=== PATIENT | female | born 1940 | race Caucasian/White ===

== ENCOUNTER 2017-05-05 13:24 | Emergency (ER) | payer OTHER, MEDICARE ==
[~2017-05-05] VITALS: Ht 160 cm; Wt 90.7 kg
[2017-05-05] MEDS: LACTATED RINGERS 1,000 ML IV ONE (13:40)
[2017-05-05] MEDS: fentaNYL INJECTION 100 MCG/2 ML AMP ONE (13:55)
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
[2017-05-05 14:04] LABS: MEAN PLATELET VOLUME 10.9 FL (7.4-10.4); RED BLOOD COUNT 3.61 10^6/uL (4.35-5.85); RED CELL DISTRIBUTION WIDTH 13.1 % (10.0-14.5); WHITE BLOOD COUNT 12.9 10^3/uL (4.3-11.0)
[2017-05-05 14:32] LABS: ALANINE AMINOTRANSFERASE 63 U/L (0-55); ALBUMIN 3.5 GM/DL (3.2-4.5); ALCOHOL 12 MG/DL (<10); ANION GAP 11 MMOL/L (5-14); ASPARTATE AMINO TRANSFERASE 93 U/L (5-34); BILIRUBIN,DIRECT 0.2 MG/DL (0.0-0.3); BILIRUBIN,INDIRECT 0.3 MG/DL; BILIRUBIN,TOTAL 0.5 MG/DL (0.1-1.0); BLOOD UREA NITROGEN 26 MG/DL (7-18); BUN/CREATININE RATIO 35; CARBON DIOXIDE 19 MMOL/L (21-32); CHLORIDE 111 MMOL/L (98-107); CREATINE KINASE 868 U/L (29-168); CREATININE SERUM 0.75 MG/DL (0.60-1.30); GFR ESTIMATED > 60; GLUCOSE 136 MG/DL (70-105); MAGNESIUM 1.9 MG/DL (1.8-2.4); PHOSPHORUS 3.9 MG/DL (2.3-4.7); POTASSIUM 3.5 MMOL/L (3.6-5.0); SODIUM 141 MMOL/L (135-145); TOTAL PROTEIN 5.7 GM/DL (6.4-8.2)
[2017-05-05] MEDS: NS 100 ML (IVPB) BAG IV ONE ×2 (14:34→14:36)
[2017-05-05] MEDS: IOHEXOL 350 MG/ML 100 ML (OMNIPAQUE 350) VIAL IV ONE ×2 (14:34→14:36)
[2017-05-05] MEDS: CATHETER FLUSH 10 ML SYR IV PRN (14:35)
[2017-05-05 14:43] LABS: INR 1.1 (0.8-1.4); PARTIAL THROMBOPLASTIN TIME 28 SEC (24-35); PROTHROMBIN TIME PATIENT 14.5 SEC (12.2-14.7)
[2017-05-05 14:56] LABS: FIBRINOGEN 280 MG/DL (221-496)
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
[2017-05-05 15:10] LABS: BILIRUBIN,URINE NEGATIVE (NEGATIVE); KETONES,URINE 1+ (NEGATIVE); LEUKOCYTE ESTERASE ,URINE NEGATIVE (NEGATIVE); NITRITE,URINE NEGATIVE (NEGATIVE); PH,URINE 5 (5-9); PROTEIN,URINE 1+ (NEGATIVE); UROBILINOGEN,URINE NORMAL (NORMAL)
[2017-05-05] MEDS: TETANUS,DIPTH,PERTUSS P/F (BOOSTRIX) 0.5 ML VIAL IM ONE (15:10)
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
[2017-05-05] MEDS: TETANUS & DIPHTHERIA TOX,ADULT 0.5 ML (TENIVAC) IM ONE (15:21)
[2017-05-05 15:45] VITALS: BP 107/70
[2017-05-06] MEDS: LACTATED RINGERS 1,000 ML IV SCH (08:58)
== END 2017-05-05 15:45 | disposition short-term general hospital (02) ==
LOC: EDUNIT# 13:24 → ER 13:25
DX: S12.031A Nondisplaced posterior arch fracture of first cervical vertebra, initial encounter for closed fracture (principal); S12.401A Unspecified nondisplaced fracture of fifth cervical vertebra, initial encounter for closed fracture; S12.501A Unspecified nondisplaced fracture of sixth cervical vertebra, initial encounter for closed fracture; S12.601A Unspecified nondisplaced fracture of seventh cervical vertebra, initial encounter for closed fracture; S22.42XA Multiple fractures of ribs, left side, initial encounter for closed fracture; S32.82XA Multiple fractures of pelvis without disruption of pelvic ring, initial encounter for closed fracture; S02.2XXA Fracture of nasal bones, initial encounter for closed fracture; S22.20XA Unspecified fracture of sternum, initial encounter for closed fracture; S27.0XXA Traumatic pneumothorax, initial encounter; S05.11XA Contusion of eyeball and orbital tissues, right eye, initial encounter; I10 Essential (primary) hypertension; E03.9 Hypothyroidism, unspecified; Z86.010 Personal history of colon polyps; Z90.49 Acquired absence of other specified parts of digestive tract; Z90.89 Acquired absence of other organs; Z98.1 Arthrodesis status; V48.5XXA Car driver injured in noncollision transport accident in traffic accident, initial encounter
CPT/HCPCS: 36415; 70450; 70486; 70498; 71010; 71260; 72125; 72128; 72131; 74177; 80048; 80076; 80306; 80320; 81000; 82550; 83605; 83735; 84100; 84484; 84703; 85027; 85379; 85384; 85610; 85730; 86850; 86900; 86901; 86920; 93005; 93041; 99291; 99292

== ENCOUNTER 2017-05-18 11:01 | Inpatient (IN) | payer OTHER, MEDICARE ==
[~2017-05-18] VITALS: Ht 162.6 cm; Wt 80.3 kg
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
[2017-05-18 16:15] VITALS: BP 138/82
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
[2017-05-18] MEDS ORDERED: INFLUENZA TRIvalent 2017-2018 0.5 ML/45 MCG SYR IM ONE (20:00)
[2017-05-18] MEDS ORDERED: PNEUMOCOCCAL VACCINE 25 MCG/0.5 ML VIAL IM ONE (20:00)
[2017-05-18 20:14] VITALS: BP 107/69
[2017-05-18] MEDS: POLYETHYLENE GLYCOL 17 GM (MIRALAX) PACK PO SCH (20:14)
[2017-05-18] MEDS: SENNA W/DOCUSATE (SENOKOT S) TABLET PO SCH (20:15)
[2017-05-18] MEDS: TRIM/SULFAMETH 160/800 (SEPTRA DS) TAB PO SCH (20:28)
[2017-05-18] MEDS: ENOXAPARIN 40 MG/0.4 ML (LOVENOX) SYR SC SCH (20:28)
[2017-05-18] MEDS: MELATONIN 3 MG TABLET PO SCH (20:28)
[2017-05-18] MEDS: LIDOCAINE PATCH REMOVAL TP SCH (20:28)
[2017-05-19] MEDS: oxyCODONE/APAP 5/325MG (PERCOCET 5) TABLET PO PRN ×3 (01:39→15:35)
[2017-05-19] MEDS: MULTIVIT W/MINERALS TAB (THERAGRAN M) PO SCH (06:09)
[2017-05-19] MEDS: ASCORBIC ACID (VIT C) 500 MG TABLET PO SCH (06:09)
[2017-05-19] MEDS: TRIM/SULFAMETH 160/800 (SEPTRA DS) TAB PO SCH ×2 (06:09→17:24)
[2017-05-19 06:21] VITALS: BP 112/71
[2017-05-19] MEDS ORDERED: LEVOTHYROXINE 112 MCG (LEVOTHROID) TAB PO NR (06:30)
[2017-05-19] MEDS: LORATADINE (CLARITIN) 10 MG TAB PO SCH (08:26)
[2017-05-19] MEDS: SENNA W/DOCUSATE (SENOKOT S) TABLET PO SCH ×2 (08:33→21:20)
[2017-05-19] MEDS: POLYETHYLENE GLYCOL 17 GM (MIRALAX) PACK PO SCH ×2 (08:33→21:20)
[2017-05-19] MEDS: LIDOCAINE (LIDODERM) 5% PATCH TOP SCH (09:00)
[2017-05-19] MEDS ORDERED: VITA1TAB17 PO (10:11)
[2017-05-19] MEDS ORDERED: ASCO10006 PO (10:11)
[2017-05-19] MEDS ORDERED: CETI10TA20 PO (10:11)
[2017-05-19] MEDS ORDERED: IBUP-30 PO (10:11)
[2017-05-19] MEDS ORDERED: LEVO112T55 PO (10:11)
[2017-05-19] MEDS ORDERED: MULT-351 PO (10:11)
[2017-05-19] MEDS ORDERED: MELA3TAB PO (10:11)
--- NOTE | 2017-05-19 10:51 | Physical Therapy Daily Note ---
PT Daily Note-Current Subjective Agreeable to PT. Wants to get on the commode. After treatment, pt said that it felt really good to get up and do something. Pain Numeric Pain Scale: 4 Location: Anterior (sternun) Pain Description: Pressure Mental Status Patient Orientation: Person, Place, Time, Situation Attachments: Oxygen (insitu during and post treatment) Transfers Functional Lane Measure 0=Not Assessed/NA 4=Minimal Assistance 1=Total Assistance 5=Supervision or Setup 2=Maximal Assistance 6=Modified Lane 3=Moderate Assistance 7=Complete IndependenceIRFPAI Quality Coding Scale 6 Independent with activity with or without an assistive device 5 Patient requires set up or clean up by helper. Patient completes activity by themselves 4 Supervision or touching assist (CGA). [place] provide cues , steadying assist 3 The helper provides less than half the effort to complete the activity 2 The helper provides more than half the effort to complete the activity 1 Dependent. The helper does all the effort to complete an activity 7 Patient refused to complete or attempt activity 9 The patient did not perform the activity before the current illness or injury 88 Not attempted due to Medical conditions or safety concerns Transfers (B, C, W/C) (FIM): 2 Supine to/from Sit: 4 Sit to Lying (QC): 3 Chair/Qqs-sk-Jghhc Xfer(QC): 2 (slide board transfer) Car Transfer (QC): 88 Pt does well with the slide board; requires max assist to place the board, requires mod assist to slide across and max assist to remove the board; skilled cues provided for hand placement and sequencing to use the board. Slide board to the right x 2 and to the left x 1. Weight Bearing Right Lower Extremity: Right Non Weight Bearing Left Lower Extremity: Left Non Weight Bearing Wheelchair Training Does the Pt Use a Wheelchair?: Yes Wheelchair (FIM): 2 Wheelchair Distance: 7=861-15 ft Distance: 125 ft Wheelchair Level of Assist: 4 Wheel 50 ft with 2 turns (QC): 4 Wheel 150 ft (QC): 88 Type of Wheelchair: Manual wheelchair propulsion 125 ft x 2 with min to CGA. Needs rest breaks. Uses B UE's to propel; left UE weaker than the right during propulsion. Assessment Current Status: Good Progress Pt uses UE very well and very helpful with transfers. PT Short Term Goals Short Term Goals Time Frame: Jun 01, 2017 Transfers (B,C,W/C) (FIM): 4 Wheelchair (FIM): 5 Wheelchair distance (FIM): 3=150 ft PT Fpc Goals Fpc Goals PT Packaging Assembler Goals Time Frame: Jun 15, 2017 Transfers (B,C,W/C) (FIM): 6 Sit to Lying (QC): 6 Lying-Sitting on Side/Bed(QC): 6 Sit to Stand (QC): 88 Rollin Roll Left to Right (QC): 6 Chair/Yyt-wc-Dqycv Xfer(QC): 6 (slide board tfr) Car Transfer (QC): 4 Does the Patient Walk: No and Walking Goal NOT indicated Wheelchair (FIM): 6 Wheelchair distance (FIM): 3=150 ft Wheelchair Level of Assist: 6 Wheel 50 feet with 2 turns (QC: 6 Stairs (FIM): 1 1 Step (curb) (QC): 88 4 Steps (QC): 88 12 Steps (QC): 88 Picking up an Object (QC): 88 PT Plan Problem List Problem List: Activity Tolerance, Functional Strength, Safety, Balance, Transfer, Bed Mobility Treatment/Plan Treatment Plan: Continue Plan of Care Treatment Plan: Bed Mobility, Education, Functional Activity Buster, Functional Strength, Safety, Therapeutic Exercise, Transfers, Other (wc mob) Treatment Duration: Jun 15, 2017 Frequency: At least 5 of 7 days/Wk (IRF) Estimated Hrs Per Day: 1.5 hours per day Patient and/or Family Agrees t: Yes Safety Risks/Education Patient Education: Transfer Techniques Teaching Recipient: Patient Teaching Methods: Demonstration, Discussion Response to Teaching: Return Demonstration, Reinforcement Needed Time/GCodes Time In: 824 Time Out: 936 Total Billed Treatment Time: 68 Total Billed Treatment visit FA 45 WC 23 FANNY CALHOUN PT May 19, 2017 10:51
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
--- NOTE | 2017-05-19 15:18 | Occupational Ther Daily Note ---
OT Current Status-Daily Note Subjective Pt seen in room, up in bed, asleep but easily awakened. Said she had slept well. Pain not mentioned Mental Status/Objective Functional [place] Measure 0=Not Assessed/NA 4=Minimal Assistance 1=Total Assistance 5=Supervision or Setup 2=Maximal Assistance 6=Modified [place] 3=Moderate Assistance 7=Complete [place] ADL-Treatment PT reported toilet transfer sliding board to [facility] with drop arm, max assist. Pt was able to manage hygiene with just a little help. Did not have clothing on but process discussed with pt. Functional [place] Measure 0=Not Assessed/NA 4=Minimal Assistance 1=Total Assistance 5=Supervision or Setup 2=Maximal Assistance 6=Modified [place] 3=Moderate Assistance 7=Complete IndependenceIRFPAI Quality Coding Scale 6 Independent with activity with or without an assistive device 5 Patient requires set up or clean up by helper. Patient completes activity by themselves 4 Supervision or touching assist (CGA). [place] provide cues , steadying assist 3 The helper provides less than half the effort to complete the activity 2 The helper provides more than half the effort to complete the activity 1 Dependent. The helper does all the effort to complete an activity 7 Patient refused to complete or attempt activity 9 The patient did not perform the activity before the current illness or injury 88 Not attempted due to Medical conditions or safety concerns Eating (FIM): 5 (Pt was unable to get a drink using a sippy cup but was successful with foam cup with straw. pt provided with Andres cup which is lightweight, has a handle and lid and uses a straw. pt reported that worked well for her, with return demo) Eating (QC): 5 Bathing (FIM): 4 (Sponge bath, with patient either supine in bed or sitting EOB. She needed help washing her back and rolled side to side with min assist to wash and dry bottom. She sat EOB to wash lower legs and feet. pt educ modified technique to be able to reach feet) Bathing Location: L Arm, R Arm, L Upper Leg, R Upper Leg, L Lower Leg ( including foot), R Lower Leg (including foot), Chest, Abdomen, Perineal Area Shower/Bathe Self (QC): 3 Upper Body (FIM): 4 (Donned shirt with sitting up long sitting in bed. A little help needed to get into position) Upper Body Dressing (QC): 3 Lower Body Dressing (FIM): 1 (pt was able to get socks off with difficulty but not put them back on. Able to get feet into pants legs and pull pants up to thighs, sitting EOB. Mod assist to get feet back into bed. Two person assist to roll her and pull pants up and to position her in bed) Lower Body Dressing (QC): 1 On/Off Footwear (QC): 3 Toileting (FIM): 4 Toileting Hygiene (QC): 4 Transfers (B, C, W/C) (FIM): 3 Toilet/Commode Transfer (FIM): 2 Toilet Transfer (QC): 2 Shower Transfer(FIM): 0 Pt originally requested a shower but we did sponge bath. She was very fatigued after bathing and dressing and needed two person assist to pull up in bed, even with her helping. Pt left up in bed, all needs met. Education OT Patient Education: Modified ADL techniques, Progress toward Goal/Update tx plan, Purpose of tx/functional activities, Use of adapted equipment Teaching Recipient: Patient Teaching Methods: Demonstration, Discussion Response to Teaching: Verbalize Understanding, Return Demonstration OT Short Term Goals Short Term Goals Transfers (B,C,W/C) (FIM): 4 1=Demonstrate adherence to instructed precautions during ADL tasks. 2=Patient will verbalize/demonstrate understanding of assistive devices/ modifications for ADL. 3=Patient will improve strength/tolerance for activity to enable patient to perform ADL's. OT Half-Way Goals Half-Way Goals 1=Demonstrate adherence to instructed precautions during ADL tasks. 2=Patient will verbalize/demonstrate understanding of assistive devices/ modifications for ADL. 3=Patient will improve strength/tolerance for activity to enable patient to perform ADL's. OT Education/Plan Discharge Recommendations Plan/Recommendations: Continue POC Treatment Plan/Plan of Care Patient would benefit from OT for education, treatment and training to promote independence in ADL's, mobility, safety and/or upper extremity function for ADL' s. Treatment Duration: Jun 15, 2017 Frequency: At least 5 of 7 days/Wk (IRF) Estimated Hrs Per Day: 1.5 hours per day Rehab Potential: Good Time/GCodes Start Time: 11:07 Stop Time: 12:12 Total Time Billed (hr/min): 65 Billed Treatment Time visit, ADL 65 minutes MICHELE ESPINOZA OT May 19, 2017 15:18
--- NOTE | 2017-05-19 15:18 | Physical Therapy Daily Note ---
PT Daily Note-Current Subjective Pt reports she is exhausted. Reports her morning therapy wore her out. Agrees to bed exercises. Transfers Functional [place] Measure 0=Not Assessed/NA 4=Minimal Assistance 1=Total Assistance 5=Supervision or Setup 2=Maximal Assistance 6=Modified [place] 3=Moderate Assistance 7=Complete IndependenceIRFPAI Quality Coding Scale 6 Independent with activity with or without an assistive device 5 Patient requires set up or clean up by helper. Patient completes activity by themselves 4 Supervision or touching assist (CGA). [place] provide cues , steadying assist 3 The helper provides less than half the effort to complete the activity 2 The helper provides more than half the effort to complete the activity 1 Dependent. The helper does all the effort to complete an activity 7 Patient refused to complete or attempt activity 9 The patient did not perform the activity before the current illness or injury 88 Not attempted due to Medical conditions or safety concerns Weight Bearing Right Lower Extremity: Right Non Weight Bearing Left Lower Extremity: Left Non Weight Bearing Exercises Supine Ex: Ankle pumps, Quad Set, Glut sets, Heel Slides, Short Arc Quads, Hip abd/add Supine Reps: 15 (LE ther ex performed to promote strength for functional mobility once she is allowed to weight bear. ) Assessment Pt fatigued this pm. Completed bed exercises; bed exercises important to promote LE strength while she is non weight bearing, ther ex is indicated to continue to use her legs and strengthen them in a NWB position. PT Short Term Goals Short Term Goals Time Frame: Jun 01, 2017 Transfers (B,C,W/C) (FIM): 4 Wheelchair (FIM): 5 Wheelchair distance (FIM): 3=150 ft Wheelchair Distance: 125 ft PT Shelter Goals Nursing Executive Goals PT Nursing Executive Goals Time Frame: Jun 15, 2017 Transfers (B,C,W/C) (FIM): 6 Sit to Lying (QC): 6 Lying-Sitting on Side/Bed(QC): 6 Sit to Stand (QC): 88 Rollin Roll Left to Right (QC): 6 Chair/Quv-yv-[place] Xfer(QC): 6 (slide board tfr) Car Transfer (QC): 4 Does the Patient Walk: No and Walking Goal NOT indicated Wheelchair (FIM): 6 Wheelchair distance (FIM): 3=150 ft Wheelchair Level of Assist: 6 Wheel 50 feet with 2 turns (QC: 6 Stairs (FIM): 1 1 Step (curb) (QC): 88 4 Steps (QC): 88 12 Steps (QC): 88 Picking up an Object (QC): 88 PT Plan Problem List Problem List: Activity Tolerance, Functional Strength, Safety, Balance, Transfer, Bed Mobility Treatment/Plan Treatment Plan: Continue Plan of Care Treatment Plan: Bed Mobility, Education, Functional Activity Buster, Functional Strength, Safety, Therapeutic Exercise, Transfers, Other (wc mob) Treatment Duration: Jun 15, 2017 Frequency: At least 5 of 7 days/Wk (IRF) Estimated Hrs Per Day: 1.5 hours per day Patient and/or Family Agrees t: Yes Time/GCodes Time In: 1305 Time Out: 1330 Total Billed Treatment Time: 25 Total Billed Treatment visit EX 25 FANNY CALHOUN PT May 19, 2017 15:18
--- NOTE | 2017-05-19 15:19 | Occupational Ther Daily Note ---
OT Current Status-Daily Note Subjective Pt seen in bed, very fatigued and sleepy but willing to try OT. Appearance Easily fell asleep during tx Mental Status/Objective Functional [place] Measure 0=Not Assessed/NA 4=Minimal Assistance 1=Total Assistance 5=Supervision or Setup 2=Maximal Assistance 6=Modified [place] 3=Moderate Assistance 7=Complete [place] ADL-Treatment Functional [place] Measure 0=Not Assessed/NA 4=Minimal Assistance 1=Total Assistance 5=Supervision or Setup 2=Maximal Assistance 6=Modified [place] 3=Moderate Assistance 7=Complete IndependenceIRFPAI Quality Coding Scale 6 Independent with activity with or without an assistive device 5 Patient requires set up or clean up by helper. Patient completes activity by themselves 4 Supervision or touching assist (CGA). [place] provide cues , steadying assist 3 The helper provides less than half the effort to complete the activity 2 The helper provides more than half the effort to complete the activity 1 Dependent. The helper does all the effort to complete an activity 7 Patient refused to complete or attempt activity 9 The patient did not perform the activity before the current illness or injury 88 Not attempted due to Medical conditions or safety concerns Grooming (FIM): 5 (Pt was able to brush her teeth with setup and used modified cup to rinse her mouth. She washed face and hands earlier during sponge bath, sestup) Oral Hygiene (QC): 5 Other Treatment Pt did 10 reps bilat UE AROM with no additional resistance. Required recovery breaks at times during the 10 reps and between reps. O2 in place throughout. Pt needed just a little help to come to long sitting to do scapular exercises. Pt turned on her R side with pillows at end of tx and left up in bed, all needs met. Education OT Patient Education: Exercise program Teaching Recipient: Patient Teaching Methods: Demonstration Response to Teaching: Return Demonstration OT Short Term Goals Short Term Goals Transfers (B,C,W/C) (FIM): 4 1=Demonstrate adherence to instructed precautions during ADL tasks. 2=Patient will verbalize/demonstrate understanding of assistive devices/ modifications for ADL. 3=Patient will improve strength/tolerance for activity to enable patient to perform ADL's. OT Jail Goals [employer]ist Internship Goals 1=Demonstrate adherence to instructed precautions during ADL tasks. 2=Patient will verbalize/demonstrate understanding of assistive devices/ modifications for ADL. 3=Patient will improve strength/tolerance for activity to enable patient to perform ADL's. OT Education/Plan Discharge Recommendations Plan/Recommendations: Continue POC Treatment Plan/Plan of Care Patient would benefit from OT for education, treatment and training to promote independence in ADL's, mobility, safety and/or upper extremity function for ADL' s. Treatment Duration: Jun 15, 2017 Frequency: At least 5 of 7 days/Wk (IRF) Estimated Hrs Per Day: 1.5 hours per day Rehab Potential: Good Time/GCodes Start Time: 14:35 Stop Time: 15:00 Total Time Billed (hr/min): 25 Billed Treatment Time visit, 25 minutes exercise MICHELE ESPINOZA OT May 19, 2017 15:19
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
[2017-05-19 19:16] VITALS: BP 101/64
[2017-05-19] MEDS: MELATONIN 3 MG TABLET PO SCH (21:18)
[2017-05-19] MEDS: LIDOCAINE PATCH REMOVAL TP SCH (21:20)
[2017-05-19] MEDS: ENOXAPARIN 40 MG/0.4 ML (LOVENOX) SYR SC SCH (21:20)
[2017-05-20 05:46] LABS: BASOPHILS # (AUTO) 0.1 10^3/uL (0.0-0.1); BASOPHILS % (AUTO) 1 % (0-10); EOSINOPHILS # (AUTO) 0.2 10^3/uL (0.0-0.3); EOSINOPHILS % (AUTO) 2 % (0-10); HEMATOCRIT 30 % (35-52); HEMOGLOBIN 9.7 G/DL (11.5-16.0); LYMPHOCYTES # (AUTO) 1.4 X 10^3 (1.0-4.0); LYMPHOCYTES % (AUTO) 16 % (12-44); MEAN CORPUSCULAR HEMOGLOBIN 32 PG (25-34); MEAN CORPUSCULAR HGB CONC 32 G/DL (32-36); MEAN CORPUSCULAR VOLUME 100 FL (80-99); MEAN PLATELET VOLUME 9.9 FL (7.4-10.4); MONOCYTES # (AUTO) 0.6 X 10^3 (0.0-1.0); MONOCYTES % (AUTO) 7 % (0-12); NEUTROPHILS # (AUTO) 6.7 X 10^3 (1.8-7.8); NEUTROPHILS % (AUTO) 75 % (42-75); PLATELET COUNT 484 10^3/uL (130-400); RED BLOOD COUNT 3.03 10^6/uL (4.35-5.85); RED CELL DISTRIBUTION WIDTH 16.3 % (10.0-14.5); WHITE BLOOD COUNT 8.9 10^3/uL (4.3-11.0)
[2017-05-20 06:05] LABS: ALANINE AMINOTRANSFERASE 67 U/L (0-55); ALBUMIN 3.2 GM/DL (3.2-4.5); ALKALINE PHOSPHATASE 314 U/L (40-136); BILIRUBIN,TOTAL 0.9 MG/DL (0.1-1.0); BUN/CREATININE RATIO 21; CALCIUM 8.3 MG/DL (8.5-10.1); CARBON DIOXIDE 24 MMOL/L (21-32); CHLORIDE 103 MMOL/L (98-107); CREATININE SERUM 0.68 MG/DL (0.60-1.30); GFR ESTIMATED > 60; GLUCOSE 114 MG/DL (70-105); POTASSIUM 4.3 MMOL/L (3.6-5.0); SODIUM 139 MMOL/L (135-145)
[2017-05-20] MEDS: MULTIVIT W/MINERALS TAB (THERAGRAN M) PO SCH (06:24)
[2017-05-20] MEDS: ASCORBIC ACID (VIT C) 500 MG TABLET PO SCH (06:24)
[2017-05-20] MEDS: TRIM/SULFAMETH 160/800 (SEPTRA DS) TAB PO SCH ×2 (06:24→18:06)
[2017-05-20 06:40] VITALS: BP 113/72
[2017-05-20] MEDS: POLYETHYLENE GLYCOL 17 GM (MIRALAX) PACK PO SCH ×2 (07:57→19:57)
[2017-05-20] MEDS: SENNA W/DOCUSATE (SENOKOT S) TABLET PO SCH ×2 (07:57→19:57)
[2017-05-20] MEDS: LIDOCAINE (LIDODERM) 5% PATCH TOP SCH (08:00)
[2017-05-20] MEDS: LORATADINE (CLARITIN) 10 MG TAB PO SCH (08:00)
[2017-05-20] MEDS: oxyCODONE/APAP 5/325MG (PERCOCET 5) TABLET PO PRN ×2 (08:00→14:30)
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
--- NOTE | 2017-05-20 12:16 | Physical Therapy Daily Note ---
PT Daily Note-Current Subjective Agreeable to PT. "It feels so good to sit up." Post treatment, pt reports " you girls sure know how to wear me out." Transfers Functional [place] Measure 0=Not Assessed/NA 4=Minimal Assistance 1=Total Assistance 5=Supervision or Setup 2=Maximal Assistance 6=Modified [place] 3=Moderate Assistance 7=Complete IndependenceIRFPAI Quality Coding Scale 6 Independent with activity with or without an assistive device 5 Patient requires set up or clean up by helper. Patient completes activity by themselves 4 Supervision or touching assist (CGA). [place] provide cues , steadying assist 3 The helper provides less than half the effort to complete the activity 2 The helper provides more than half the effort to complete the activity 1 Dependent. The helper does all the effort to complete an activity 7 Patient refused to complete or attempt activity 9 The patient did not perform the activity before the current illness or injury 88 Not attempted due to Medical conditions or safety concerns Transfers (B, C, W/C) (FIM): 2 Roll Left to Right (QC): 4 Sit to Lying (QC): 3 (assist with both legs) Chair/Ffx-fb-Qstoe Xfer(QC): 2 (varies between mod to max assist; slide board transfer) Pt moves very well using her UE's to roll, transistion sit to from supine and for the slide board. She is also able to lean fully to allow placement of the slideboard. Pt's slide board transfer varies, depending on fatigue and level she is transferring. She did transfer to her left and to her right today. Pt sat EOB several minutes to perform ADL"s and bathing with OT. She performed sit to from supine x2 reps and slide board transfer bed to commode to bed to wheelchair with above noted assist. Pt in wheelchair post treatment with needs met. Weight Bearing Right Lower Extremity: Right Non Weight Bearing Left Lower Extremity: Left Non Weight Bearing Wheelchair Training Does the Pt Use a Wheelchair?: Yes Wheelchair (FIM): 2 Type of Wheelchair: Manual wheelchair mobility at a room level this visit. Pt propelled herself to the bathroom and up to the sink and then backed out of the bathroom with min assist and cues to sequence the obstacles. Pt up in wheelchair post treatment. Discussed weight shifting and pressure relief to reduce risk of skin breakdown. Pt verbalized and demonstrated understanding. Treatments Co treatment with OT is indicated at this time due to the heavy needs of the patient in regards to transfers and bed mobility. OT addressed self care with bathing and dressing, whilst PT addressed the tranfers involved with the position changes needed. She was required to transition sit to from supine, roll for dressing, sit EOB, transfer on/off the commode--all which is new to her and requires skilled intervnetion to address. The cotreatment effectively captured all the patient needs in a session that allowed us to wholly treat the patient. Assessment Current Status: Good Progress Progressing well. Good carryover of trained tasks. PT Short Term Goals Short Term Goals Time Frame: Jun 01, 2017 Transfers (B,C,W/C) (FIM): 4 Wheelchair (FIM): 5 Wheelchair distance (FIM): 3=150 ft Wheelchair Distance: 125 ft PT Gear Shaper Set Up Operator Goals Gear Shaper Set Up Operator Goals PT Gear Shaper Set Up Operator Goals Time Frame: Jun 15, 2017 Transfers (B,C,W/C) (FIM): 6 Sit to Lying (QC): 6 Lying-Sitting on Side/Bed(QC): 6 Sit to Stand (QC): 88 Rollin Roll Left to Right (QC): 6 Chair/[place] Xfer(QC): 6 (slide board tfr) Car Transfer (QC): 4 Does the Patient Walk: No and Walking Goal NOT indicated Wheelchair (FIM): 6 Wheelchair distance (FIM): 3=150 ft Wheelchair Level of Assist: 6 Wheel 50 feet with 2 turns (QC: 6 Stairs (FIM): 1 1 Step (curb) (QC): 88 4 Steps (QC): 88 12 Steps (QC): 88 Picking up an Object (QC): 88 PT Plan Problem List Problem List: Activity Tolerance, Functional Strength, Safety, Balance, Transfer, Bed Mobility Treatment/Plan Treatment Plan: Continue Plan of Care Treatment Plan: Bed Mobility, Education, Functional Activity Buster, Functional Strength, Safety, Therapeutic Exercise, Transfers, Other (wc mob) Treatment Duration: Jun 15, 2017 Frequency: At least 5 of 7 days/Wk (IRF) Estimated Hrs Per Day: 1.5 hours per day Patient and/or Family Agrees t: Yes Safety Risks/Education Patient Education: Transfer Techniques, Safety Issues Teaching Recipient: Patient Teaching Methods: Demonstration, Discussion Response to Teaching: Verbalize Understanding, Return Demonstration, Reinforcement Needed Time/GCodes Time In: 1105 Time Out: 1205 Total Billed Treatment Time: 60 Total Billed Treatment visit FA 45 WC 15 FANNY CALHOUN PT May 20, 2017 12:16
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
[2017-05-20] MEDS ORDERED: LEVOTHYROXINE 112 MCG (LEVOTHROID) TAB PO NR (14:13)
--- NOTE | 2017-05-20 15:10 | Occupational Ther Daily Note ---
OT Current Status-Daily Note Subjective Pt seen in room, up in bed, agreeable to OT. Reported, "I sure was wiped out yesterday." Pain not mentioned Appearance Alert, cooperative, ready to work Mental Status/Objective Functional [place] Measure 0=Not Assessed/NA 4=Minimal Assistance 1=Total Assistance 5=Supervision or Setup 2=Maximal Assistance 6=Modified [place] 3=Moderate Assistance 7=Complete [place] ADL-Treatment Supine to sit EOB for bathing, dressing. Transfer[place] [facility] [place] and drop arms, using sliding board (two people required to assure that sliding board did not move). Used corn starch on board when she did not have clothing on. See PT note regarding sliding board transfer nevin nd off BS. Pt also groomed at w/c level at sink. Co-tx with PT, with PT addressing transfers and balance and OT addressing ADLs and modified techniques. Co-tx in part due to significantly decreased activity tolerance and requirements for frequent recovery periods. Pt has been using O2 but it was off during most of tx. O2 sats checked frequently and pt was able to maintain O2 sats at 95%, with recovery breaks and occasional pursed lip breathing. Pt left up in w/c, with cushion, for lunch, all needs met. Using Andres cup for meals. Functional [place] Measure 0=Not Assessed/NA 4=Minimal Assistance 1=Total Assistance 5=Supervision or Setup 2=Maximal Assistance 6=Modified [place] 3=Moderate Assistance 7=Complete IndependenceIRFPAI Quality Coding Scale 6 Independent with activity with or without an assistive device 5 Patient requires set up or clean up by helper. Patient completes activity by themselves 4 Supervision or touching assist (CGA). [place] provide cues , steadying assist 3 The helper provides less than half the effort to complete the activity 2 The helper provides more than half the effort to complete the activity 1 Dependent. The helper does all the effort to complete an activity 7 Patient refused to complete or attempt activity 9 The patient did not perform the activity before the current illness or injury 88 Not attempted due to Medical conditions or safety concerns Grooming (FIM): 5 (Setup at w/c level, at accessible sink. Has a little difficulty leaning forward to spit into sink but used emesis basin. Washed face and hands during spongebath) Bathing (FIM): 4 (Sponge bath at EOB. Adequate balance to reach feet, modifying sitting position. Unable to wash bottom ) Bathing Location: L Arm, R Arm, L Upper Leg, R Upper Leg, L Lower Leg ( including foot), R Lower Leg (including foot), Chest, Abdomen, Perineal Area Upper Body (FIM): 5 (Doffed and donned shirt with setup) Lower Body Dressing (FIM): 3 (Pt was able to weight shift to get pants off while sitting EOB. Able to get clean pants on over her feet and up to her thighs. Weight shifting wasn't adequate for pulling pants up so she scooted up in bed and transitioned to supine with mod assist. Pt assisted with rolling side to side for pants to be pulled up. Help to thread catheter through pants leg. Pt education use of sock aid to don slipper socks - she was able to put one on herself. ) Toileting (FIM): 3 (Pt got pants down but help needed to get them up (they were smaller shorts). Able to wipe front and back while sitting on BSC. Cont with Camara) Toilet/Commode Transfer (FIM): 2 All ADLS took longer than usual, with additional recovery periods and targeted problem solving for transfers and toileting. Education OT Patient Education: Modified ADL techniques, Progress toward Goal/Update tx plan, Purpose of tx/functional activities, Transfer techniques, Use of adapted equipment Teaching Recipient: Patient Teaching Methods: Demonstration, Discussion Response to Teaching: Verbalize Understanding, Return Demonstration, Reinforcement Needed OT Short Term Goals Short Term Goals Time Frame: Jun 01, 2017 Eating(FIM): 6 Grooming(FIM): 5 Transfers (B,C,W/C) (FIM): 4 Additional Short Term Goals: 1-Demonstrate ADL Tasks, 2-Verbalize Understanding , 3-ImproveStrength/Buster 1=Demonstrate adherence to instructed precautions during ADL tasks. 2=Patient will verbalize/demonstrate understanding of assistive devices/ modifications for ADL. 3=Patient will improve strength/tolerance for activity to enable patient to perform ADL's. OT Esthetician Makeup Artist Goals Esthetician Makeup Artist Goals Time Frame: Jun 15, 2017 Eating (FIM): 6 Eating (QC): 6 Groomin Oral Hygiene (QC): 6 Bathing(FIM): 5 Shower/Bathe Self (QC): 5 Upper Body Dressing(FIM): 6 Upper Body Dressing (QC): 6 Lower Body Dressing(FIM): 6 Lower Body Dressing (QC): 6 On/Off Footwear (QC): 6 Toileting(FIM): 6 Toileting Hygiene (QC): 6 Toilet/Commode Transfer(FIM): 6 Toilet/Commode Transfer (QC): 6 Shower Transfer(FIM): 5 Additional Goals: 1-Demonstrate ADL Tasks, 2-Verbalize Understanding, 3- ImproveStrength/Buster 1=Demonstrate adherence to instructed precautions during ADL tasks. 2=Patient will verbalize/demonstrate understanding of assistive devices/ modifications for ADL. 3=Patient will improve strength/tolerance for activity to enable patient to perform ADL's. OT Education/Plan Problem List/Assessment Pt would benefit from skilled OT to increase her independence in basic self care to allow her to safely return to her home and to decrease caregiver burden Discharge Recommendations Plan/Recommendations: Continue POC Treatment Plan/Plan of Care Patient would benefit from OT for education, treatment and training to promote independence in ADL's, mobility, safety and/or upper extremity function for ADL' s. Plan of Care: ADL Retraining, Functional Mobility, Group Exercise/Act as Ind ( education, exercise, act tolerance, socialization, transfers, funct activities) , UE Funct Exercise/Act, UE Neuromus Re-Ed/Coord Treatment Duration: Jun 15, 2017 Frequency: At least 5 of 7 days/Wk (IRF) Estimated Hrs Per Day: 1.5 hours per day Agreement: Yes Rehab Potential: Good Time/GCodes Start Time: 11:05 Stop Time: 12:05 Total Time Billed (hr/min): 60 Billed Treatment Time visit, 60 minutes ADL MICHELE ESPINOZA OT May 20, 2017 15:10
[2017-05-20 19:00] VITALS: BP 108/75
[2017-05-20] MEDS: LIDOCAINE PATCH REMOVAL TP SCH (19:13)
[2017-05-20 19:24] VITALS: BP 108/75
[2017-05-20] MEDS: MELATONIN 3 MG TABLET PO SCH (20:56)
[2017-05-20] MEDS: ENOXAPARIN 40 MG/0.4 ML (LOVENOX) SYR SC SCH (20:56)
[2017-05-21 03:22] VITALS: BP 114/74
[2017-05-21] MEDS: LEVOTHYROXINE 112 MCG (LEVOTHROID) TAB PO SCH (06:24)
[2017-05-21] MEDS: TRIM/SULFAMETH 160/800 (SEPTRA DS) TAB PO SCH (06:24)
[2017-05-21] MEDS: MULTIVIT W/MINERALS TAB (THERAGRAN M) PO SCH (06:24)
[2017-05-21] MEDS: ASCORBIC ACID (VIT C) 500 MG TABLET PO SCH (06:24)
[2017-05-21] MEDS: oxyCODONE/APAP 5/325MG (PERCOCET 5) TABLET PO PRN ×3 (06:25→17:45)
--- NOTE | 2017-05-21 09:48 | Physical Therapy Daily Note ---
PT Daily Note-Current Subjective Pt in bed, agreeable. Pt reports she did not take a pain pill at all through the night. "I took one this morning and I guess I didn't really realize how much I was hurting because it really knocked me out". Pt reports feeling "a little groggy" but no pain rating provided. Pt requested to sit EOB to take vitamin and "get my bearings" then requested up to [facility]. Mental Status Patient Orientation: Person, Place, Time, Situation Transfers Functional [place] Measure 0=Not Assessed/NA 4=Minimal Assistance 1=Total Assistance 5=Supervision or Setup 2=Maximal Assistance 6=Modified [place] 3=Moderate Assistance 7=Complete IndependenceIRFPAI Quality Coding Scale 6 Independent with activity with or without an assistive device 5 Patient requires set up or clean up by helper. Patient completes activity by themselves 4 Supervision or touching assist (CGA). [place] provide cues , steadying assist 3 The helper provides less than half the effort to complete the activity 2 The helper provides more than half the effort to complete the activity 1 Dependent. The helper does all the effort to complete an activity 7 Patient refused to complete or attempt activity 9 The patient did not perform the activity before the current illness or injury 88 Not attempted due to Medical conditions or safety concerns Supine to/from Sit: 5 Chair/Gad-pp-Aqjwv Xfer(QC): 3 Bed to/from Chair: 4 Slideboard TFR bed->[facility] with mod A x 1 with skilled VCS for safety and sequencing. Pt initially attempting TFR with (B) knees extended; VCS to allow knee flexion to decrease forward slide off board. Educated to perform TFR is multiple small, controlled slides which Pt managed very well. Weight Bearing Right Lower Extremity: Right Non Weight Bearing Left Lower Extremity: Left Non Weight Bearing Treatments Supine->sit and bed->chair TFR with SB. Up in [facility] post treatment at Pt request, needs met. Assessment Current Status: Good Progress Pt tolerated well. Pt sat EOB with normal static sitting balance. Completed SB TFR safely with skilled VCS and mod A x 1. PT Short Term Goals Short Term Goals Time Frame: Jun 01, 2017 Transfers (B,C,W/C) (FIM): 4 Wheelchair (FIM): 5 Wheelchair distance (FIM): 3=150 ft Wheelchair Distance: 125 ft PT Mcfp Goals Mcfp Goals PT Mcfp Goals Time Frame: Jun 15, 2017 Transfers (B,C,W/C) (FIM): 6 Sit to Lying (QC): 6 Lying-Sitting on Side/Bed(QC): 6 Sit to Stand (QC): 88 Rollin Roll Left to Right (QC): 6 Chair/Dmb-yk-Tybop Xfer(QC): 6 (slide board tfr) Car Transfer (QC): 4 Does the Patient Walk: No and Walking Goal NOT indicated Wheelchair (FIM): 6 Wheelchair distance (FIM): 3=150 ft Wheelchair Level of Assist: 6 Wheel 50 feet with 2 turns (QC: 6 Stairs (FIM): 1 1 Step (curb) (QC): 88 4 Steps (QC): 88 12 Steps (QC): 88 Picking up an Object (QC): 88 PT Plan Problem List Problem List: Activity Tolerance, Functional Strength, Safety, Balance, Gait, Transfer, Bed Mobility Treatment/Plan Treatment Plan: Continue Plan of Care Treatment Plan: Bed Mobility, Education, Functional Activity Buster, Functional Strength, Group Therapy, Safety, Therapeutic Exercise, Transfers, Other (wc mob) Treatment Duration: Jun 15, 2017 Frequency: At least 5 of 7 days/Wk (IRF) Estimated Hrs Per Day: 1.5 hours per day Patient and/or Family Agrees t: Yes Safety Risks/Education Patient Education: Transfer Techniques, Safety Issues Teaching Recipient: Patient Teaching Methods: Demonstration, Discussion Response to Teaching: Reinforcement Needed Discharge Recommendations Barriers to Progress None Time/GCodes Time In: 0805 Time Out: 0838 Total Billed Treatment Time: 33 Total Billed Treatment 1, FA x 33' G Codes Necessary: No VICTOR MANUEL JAMES DPNasir May 21, 2017 09:48
[2017-05-21] MEDS: LIDOCAINE (LIDODERM) 5% PATCH TOP SCH (10:04)
[2017-05-21] MEDS: LORATADINE (CLARITIN) 10 MG TAB PO SCH (10:04)
[2017-05-21] MEDS: SENNA W/DOCUSATE (SENOKOT S) TABLET PO SCH ×2 (10:05→19:24)
[2017-05-21] MEDS: POLYETHYLENE GLYCOL 17 GM (MIRALAX) PACK PO SCH ×2 (10:05→19:24)
[2017-05-21 18:00] VITALS: BP 111/73
[2017-05-21] MEDS: MELATONIN 3 MG TABLET PO SCH (20:12)
[2017-05-21] MEDS: LIDOCAINE PATCH REMOVAL TP SCH (20:13)
[2017-05-21] MEDS: ENOXAPARIN 40 MG/0.4 ML (LOVENOX) SYR SC SCH (20:13)
[2017-05-22] MEDS: oxyCODONE/APAP 5/325MG (PERCOCET 5) TABLET PO PRN ×4 (03:08→20:19)
[2017-05-22 05:32] VITALS: BP 109/72
[2017-05-22] MEDS: MULTIVIT W/MINERALS TAB (THERAGRAN M) PO SCH (06:15)
[2017-05-22] MEDS: ASCORBIC ACID (VIT C) 500 MG TABLET PO SCH (06:15)
[2017-05-22] MEDS: LEVOTHYROXINE 112 MCG (LEVOTHROID) TAB PO SCH (06:15)
[2017-05-22] MEDS: LORATADINE (CLARITIN) 10 MG TAB PO SCH (09:27)
[2017-05-22] MEDS: LIDOCAINE (LIDODERM) 5% PATCH TOP SCH (09:32)
[2017-05-22] MEDS: SENNA W/DOCUSATE (SENOKOT S) TABLET PO SCH ×2 (09:34→20:14)
[2017-05-22] MEDS: POLYETHYLENE GLYCOL 17 GM (MIRALAX) PACK PO SCH ×2 (09:34→20:14)
[2017-05-22] MEDS ORDERED: LOPERAMIDE 2 MG (IMODIUM) CAP PO PRN (13:00)
[2017-05-22] MEDS: LACTOBACILLUS Acidoph/Bulgar (LACTINEX/FLORANEX) TAB PO SCH (16:13)
[2017-05-22 18:59] VITALS: BP 101/65
[2017-05-22] MEDS: metroNIDAZOLE 500 MG (FLAGYL) TAB PO SCH (20:19)
[2017-05-22] MEDS: ENOXAPARIN 40 MG/0.4 ML (LOVENOX) SYR SC SCH (20:19)
[2017-05-22] MEDS: MELATONIN 3 MG TABLET PO SCH (20:19)
[2017-05-22] MEDS: LIDOCAINE PATCH REMOVAL TP SCH (20:24)
[2017-05-23] MEDS: LACTOBACILLUS Acidoph/Bulgar (LACTINEX/FLORANEX) TAB PO SCH ×3 (05:18→15:57)
[2017-05-23] MEDS: oxyCODONE/APAP 5/325MG (PERCOCET 5) TABLET PO PRN ×3 (05:19→20:30)
[2017-05-23 05:28] VITALS: BP 108/69
[2017-05-23] MEDS: ASCORBIC ACID (VIT C) 500 MG TABLET PO SCH (07:00)
[2017-05-23] MEDS: LEVOTHYROXINE 112 MCG (LEVOTHROID) TAB PO SCH (07:00)
[2017-05-23] MEDS: MULTIVIT W/MINERALS TAB (THERAGRAN M) PO SCH (07:00)
[2017-05-23] MEDS: metroNIDAZOLE 500 MG (FLAGYL) TAB PO SCH ×3 (08:46→20:33)
[2017-05-23] MEDS: ceTIRizine 10 MG (ZyrTEC) TAB NON-FORMULARY PO SCH (08:46)
[2017-05-23] MEDS: SENNA W/DOCUSATE (SENOKOT S) TABLET PO SCH ×2 (08:48→20:32)
[2017-05-23] MEDS: POLYETHYLENE GLYCOL 17 GM (MIRALAX) PACK PO SCH ×2 (08:48→20:32)
[2017-05-23] MEDS: LIDOCAINE (LIDODERM) 5% PATCH TOP SCH (08:49)
--- NOTE | 2017-05-23 12:56 | Occupational Ther Daily Note ---
OT Current Status-Daily Note Subjective Pt seen in room, up in bed, agreeable to OT. Pain not mentioned but pt reported fatigue. Now has c-diff and was on toilet or bedpan 7 times yesterday, per her report. Appearance Alert, cooperative Mental Status/Objective Functional [place] Measure 0=Not Assessed/NA 4=Minimal Assistance 1=Total Assistance 5=Supervision or Setup 2=Maximal Assistance 6=Modified [place] 3=Moderate Assistance 7=Complete [place] ADL-Treatment Pt was co-treated with PT, with PT focusing on transfers and balance and OT focusing on ADLs and UE function. Pt has been weaned off O2 but continues to have low energy reserves for functional activities, although she continues to make progress. Pt sat EOB to do sponge bath and was able to reach all parts except R foot, roslyn and bottom. Cervical collar in place at all times. Pt had difficulty reaching R foot due to discomfort in R hip during movement. After sitting EOB, pt transitioned to supine and needed help to wash her roslyn area ( for good Camara care). She rolled side to side for cleaning her bottom. She did not dress except in hospital gown and slipper socks and was able to put gown and L sock on. She sat back up again (see PT notes for transfers) and did sliding board transfer to w/c. She was able to propel w/c to bathroom and position chair at sink, locking brakes. At the sink, she was able to wash her face and hands, brush teeth and hair with setup. During bath, pt had R little finger undressed, with no drainage. Positioned with PIP extension and DIP flexion. May benefit from therapy, with physician OK. Care transferred to PT at end of tx. Functional [place] Measure 0=Not Assessed/NA 4=Minimal Assistance 1=Total Assistance 5=Supervision or Setup 2=Maximal Assistance 6=Modified [place] 3=Moderate Assistance 7=Complete IndependenceIRFPAI Quality Coding Scale 6 Independent with activity with or without an assistive device 5 Patient requires set up or clean up by helper. Patient completes activity by themselves 4 Supervision or touching assist (CGA). [place] provide cues , steadying assist 3 The helper provides less than half the effort to complete the activity 2 The helper provides more than half the effort to complete the activity 1 Dependent. The helper does all the effort to complete an activity 7 Patient refused to complete or attempt activity 9 The patient did not perform the activity before the current illness or injury 88 Not attempted due to Medical conditions or safety concerns Education OT Patient Education: Modified ADL techniques, Progress toward Goal/Update tx plan, Purpose of tx/functional activities Teaching Recipient: Patient Teaching Methods: Demonstration, Discussion Response to Teaching: Return Demonstration OT Short Term Goals Short Term Goals Time Frame: Jun 01, 2017 Eating(FIM): 6 Grooming(FIM): 5 Transfers (B,C,W/C) (FIM): 4 Additional Short Term Goals: 1-Demonstrate ADL Tasks, 2-Verbalize Understanding , 3-ImproveStrength/Buster 1=Demonstrate adherence to instructed precautions during ADL tasks. 2=Patient will verbalize/demonstrate understanding of assistive devices/ modifications for ADL. 3=Patient will improve strength/tolerance for activity to enable patient to perform ADL's. OT Fuel House Attendant Goals Correction Goals Time Frame: Jun 15, 2017 Eating (FIM): 6 Eating (QC): 6 Groomin Oral Hygiene (QC): 6 Bathing(FIM): 5 Shower/Bathe Self (QC): 5 Upper Body Dressing(FIM): 6 Upper Body Dressing (QC): 6 Lower Body Dressing(FIM): 6 Lower Body Dressing (QC): 6 On/Off Footwear (QC): 6 Toileting(FIM): 6 Toileting Hygiene (QC): 6 Toilet/Commode Transfer(FIM): 6 Toilet/Commode Transfer (QC): 6 Shower Transfer(FIM): 5 Additional Goals: 1-Demonstrate ADL Tasks, 2-Verbalize Understanding, 3- ImproveStrength/Buster 1=Demonstrate adherence to instructed precautions during ADL tasks. 2=Patient will verbalize/demonstrate understanding of assistive devices/ modifications for ADL. 3=Patient will improve strength/tolerance for activity to enable patient to perform ADL's. OT Education/Plan Problem List/Assessment Pt would benefit from skilled OT to increase her independence in basic self care to allow her to safely return to her home and to decrease caregiver burden Discharge Recommendations Plan/Recommendations: Continue POC Treatment Plan/Plan of Care Patient would benefit from OT for education, treatment and training to promote independence in ADL's, mobility, safety and/or upper extremity function for ADL' s. Plan of Care: ADL Retraining, Functional Mobility, Group Exercise/Act as Ind ( education, exercise, act tolerance, socialization, transfers, funct activities) , UE Funct Exercise/Act, UE Neuromus Re-Ed/Coord Treatment Duration: Jun 15, 2017 Frequency: At least 5 of 7 days/Wk (IRF) Estimated Hrs Per Day: 1.5 hours per day Agreement: Yes Rehab Potential: Good Time/GCodes Start Time: 11:15 Stop Time: 12:05 Total Time Billed (hr/min): 50 Billed Treatment Time visit, 50 minutes ADL (co-tx with PT) MICHELE ESPINOZA OT May 23, 2017 12:56
--- NOTE | 2017-05-23 15:05 | Physical Therapy Daily Note ---
PT Daily Note-Current Subjective Agreeable to PT. Reports she transferreed onto and off the commode 7 times yesterday. Transfers Functional [place] Measure 0=Not Assessed/NA 4=Minimal Assistance 1=Total Assistance 5=Supervision or Setup 2=Maximal Assistance 6=Modified [place] 3=Moderate Assistance 7=Complete IndependenceIRFPAI Quality Coding Scale 6 Independent with activity with or without an assistive device 5 Patient requires set up or clean up by helper. Patient completes activity by themselves 4 Supervision or touching assist (CGA). [place] provide cues , steadying assist 3 The helper provides less than half the effort to complete the activity 2 The helper provides more than half the effort to complete the activity 1 Dependent. The helper does all the effort to complete an activity 7 Patient refused to complete or attempt activity 9 The patient did not perform the activity before the current illness or injury 88 Not attempted due to Medical conditions or safety concerns Weight Bearing Right Lower Extremity: Right Non Weight Bearing Left Lower Extremity: Left Non Weight Bearing Treatments Supine B LE ther ex x 15 for AP, QS, SAQ, heel slide, hip abduct; GS and pelvic tilt. Slow with exercises and pt needs rest breaks. Assessment Current Status: Good Progress Tolerated exercises well. PT Short Term Goals Short Term Goals Time Frame: Jun 01, 2017 Transfers (B,C,W/C) (FIM): 4 Wheelchair (FIM): 5 Wheelchair distance (FIM): 3=150 ft Wheelchair Distance: 125 ft PT Fdc Goals Fdc Goals PT Fdc Goals Time Frame: Jun 15, 2017 Transfers (B,C,W/C) (FIM): 6 Sit to Lying (QC): 6 Lying-Sitting on Side/Bed(QC): 6 Sit to Stand (QC): 88 Rollin Roll Left to Right (QC): 6 Chair/Tcp-tt-Xhext Xfer(QC): 6 (slide board tfr) Car Transfer (QC): 4 Does the Patient Walk: No and Walking Goal NOT indicated Wheelchair (FIM): 6 Wheelchair distance (FIM): 3=150 ft Wheelchair Level of Assist: 6 Wheel 50 feet with 2 turns (QC: 6 Stairs (FIM): 1 1 Step (curb) (QC): 88 4 Steps (QC): 88 12 Steps (QC): 88 Picking up an Object (QC): 88 PT Plan Problem List Problem List: Activity Tolerance, Functional Strength, Safety Treatment/Plan Treatment Plan: Continue Plan of Care Treatment Plan: Bed Mobility, Education, Functional Activity Buster, Functional Strength, Group Therapy, Safety, Therapeutic Exercise, Transfers, Other (wc mob) Treatment Duration: Jun 15, 2017 Frequency: At least 5 of 7 days/Wk (IRF) Estimated Hrs Per Day: 1.5 hours per day Patient and/or Family Agrees t: Yes Time/GCodes Time In: 1035 Time Out: 1105 Total Billed Treatment Time: 30 Total Billed Treatment visit EX 30 FANNY CALHOUN PT May 23, 2017 15:05
--- NOTE | 2017-05-23 15:11 | Physical Therapy Daily Note ---
PT Daily Note-Current Subjective Agrees to PT for ADL and transfers with OT as well. Transfers Functional [place] Measure 0=Not Assessed/NA 4=Minimal Assistance 1=Total Assistance 5=Supervision or Setup 2=Maximal Assistance 6=Modified [place] 3=Moderate Assistance 7=Complete IndependenceIRFPAI Quality Coding Scale 6 Independent with activity with or without an assistive device 5 Patient requires set up or clean up by helper. Patient completes activity by themselves 4 Supervision or touching assist (CGA). [place] provide cues , steadying assist 3 The helper provides less than half the effort to complete the activity 2 The helper provides more than half the effort to complete the activity 1 Dependent. The helper does all the effort to complete an activity 7 Patient refused to complete or attempt activity 9 The patient did not perform the activity before the current illness or injury 88 Not attempted due to Medical conditions or safety concerns Weight Bearing Right Lower Extremity: Right Non Weight Bearing Left Lower Extremity: Left Non Weight Bearing Treatments Pt requires mod assist to transfer sup to sit x 2 repetitions with asssit for legs and to lift trunk. Sit to supine with min assist to left her right leg into bed x 2 reps. Seated EOB worked on trunk control and balance with skilled cues for safety and techniques to manage while she worked with OT on ADL's and bathing/dressing. Slide board transfer x 2 reps with mod assist to complete using corn starch on the board to ease her transfer. Pt also performed rolling in bed to continue to work on bathing and roslyn area cleansing. Wheelchair mobility with SBA in her room and in/out of the bathroom with turns and backing alll SBA. Pt up in chair post treatment with needs met. Co treat with OT due to extensive need for assist and multiple transfers and ADL work. 2 skilled clinicians indicated due to the complexity of her self care tasks paired with multiple transfers. Assessment Current Status: Good Progress Pt making good functional progress and working towards est goals. PT Short Term Goals Short Term Goals Time Frame: Jun 01, 2017 Transfers (B,C,W/C) (FIM): 4 Wheelchair (FIM): 5 Wheelchair distance (FIM): 3=150 ft Wheelchair Distance: 125 ft PT Medical Technologist Chief Goals Retirement Goals PT Medical Technologist Chief Goals Time Frame: Jun 15, 2017 Transfers (B,C,W/C) (FIM): 6 Sit to Lying (QC): 6 Lying-Sitting on Side/Bed(QC): 6 Sit to Stand (QC): 88 Rollin Roll Left to Right (QC): 6 Chair/Ika-lm-Qybaf Xfer(QC): 6 (slide board tfr) Car Transfer (QC): 4 Does the Patient Walk: No and Walking Goal NOT indicated Wheelchair (FIM): 6 Wheelchair distance (FIM): 3=150 ft Wheelchair Level of Assist: 6 Wheel 50 feet with 2 turns (QC: 6 Stairs (FIM): 1 1 Step (curb) (QC): 88 4 Steps (QC): 88 12 Steps (QC): 88 Picking up an Object (QC): 88 PT Plan Problem List Problem List: Activity Tolerance, Functional Strength, Safety Treatment/Plan Treatment Plan: Continue Plan of Care Treatment Plan: Bed Mobility, Education, Functional Activity Buster, Functional Strength, Group Therapy, Safety, Therapeutic Exercise, Transfers, Other (wc mob) Treatment Duration: Jun 15, 2017 Frequency: At least 5 of 7 days/Wk (IRF) Estimated Hrs Per Day: 1.5 hours per day Patient and/or Family Agrees t: Yes Safety Risks/Education Patient Education: Transfer Techniques Teaching Recipient: Patient Teaching Methods: Demonstration, Discussion Response to Teaching: Return Demonstration Time/GCodes Time In: 1115 Time Out: 1210 Total Billed Treatment Time: 55 Total Billed Treatment visit FA 55 Co treat 50 minutes FANNY CALHOUN PT May 23, 2017 15:11
--- NOTE | 2017-05-23 15:23 | Physical Therapy Daily Note ---
PT Daily Note-Current Subjective Pt is sitting in chair pre tx and agrees to PT. Appearance Pt is laying in bed post tx and the phone, remote, and tray are within reach. Mental Status Patient Orientation: Person, Place, Situation Attachments: Acmara Catheter Neck brace Transfers Functional [place] Measure 0=Not Assessed/NA 4=Minimal Assistance 1=Total Assistance 5=Supervision or Setup 2=Maximal Assistance 6=Modified [place] 3=Moderate Assistance 7=Complete IndependenceIRFPAI Quality Coding Scale 6 Independent with activity with or without an assistive device 5 Patient requires set up or clean up by helper. Patient completes activity by themselves 4 Supervision or touching assist (CGA). [place] provide cues , steadying assist 3 The helper provides less than half the effort to complete the activity 2 The helper provides more than half the effort to complete the activity 1 Dependent. The helper does all the effort to complete an activity 7 Patient refused to complete or attempt activity 9 The patient did not perform the activity before the current illness or injury 88 Not attempted due to Medical conditions or safety concerns Transfers (B, C, W/C) (FIM): 4 Scootin Rollin Supine to/from Sit: 4 Sit to/from Stand: 4 Bed to/from Chair: 4 (slide board transfer) Weight Bearing Right Lower Extremity: Right Non Weight Bearing Left Lower Extremity: Left Non Weight Bearing Wheelchair Training Does the Pt Use a Wheelchair?: Yes Wheelchair (FIM): 1 Wheelchair Distance: 1=up to 49 ft Distance: 40 feet Wheelchair Level of Assist: 5 Type of Wheelchair: Manual Pt c/o L shoulder pain after propelling self in WCH. Exercises Supine Ex: Ankle pumps (15 x1 tayler), Pelvic tilt (15 x1), Glut sets (15 x1), Heel Slides (15 x1 tayler) Treatments Pt participated in bed mobility, functional activity, and LE strengthening. Assessment Current Status: Good Progress Pt requires min A during bed mobility and transfers using a sliding board. Pt developed pain in the L shoulder after propelling WCH. Pt tolerated LE exercises well. PT Short Term Goals Short Term Goals Time Frame: Jun 01, 2017 Transfers (B,C,W/C) (FIM): 4 Wheelchair (FIM): 5 Wheelchair distance (FIM): 3=150 ft Wheelchair Distance: 125 ft PT [employer] F[employer] Goals [place] [employer] Goals PT Retirement Goals Time Frame: Jun 15, 2017 Transfers (B,C,W/C) (FIM): 6 Sit to Lying (QC): 6 Lying-Sitting on Side/Bed(QC): 6 Sit to Stand (QC): 88 Rollin Roll Left to Right (QC): 6 Chair/Lxa-lf-Fcfky Xfer(QC): 6 (slide board tfr) Car Transfer (QC): 4 Does the Patient Walk: No and Walking Goal NOT indicated Wheelchair (FIM): 6 Wheelchair distance (FIM): 3=150 ft Wheelchair Level of Assist: 6 Wheel 50 feet with 2 turns (QC: 6 Stairs (FIM): 1 1 Step (curb) (QC): 88 4 Steps (QC): 88 12 Steps (QC): 88 Picking up an Object (QC): 88 PT Plan Problem List Problem List: Activity Tolerance, Functional Strength, Safety, Balance, Gait, Transfer, Bed Mobility, ROM Treatment/Plan Treatment Plan: Continue Plan of Care Treatment Plan: Bed Mobility, Education, Functional Activity Buster, Functional Strength, Group Therapy, Safety, Therapeutic Exercise, Transfers, Other (doreen mob) Treatment Duration: Jun 15, 2017 Frequency: At least 5 of 7 days/Wk (IRF) Estimated Hrs Per Day: 1.5 hours per day Patient and/or Family Agrees t: Yes Safety Risks/Education Patient Education: Transfer Techniques, Correct Positioning, W/C Management, Disease Process, Safety Issues Teaching Recipient: Patient Teaching Methods: Demonstration, Discussion Response to Teaching: Verbalize Understanding, Return Demonstration Time/GCodes Time In: 1420 Time Out: 1505 Total Billed Treatment Time: 45 Total Billed Treatment 1 visit 15 min FA 15 min EX 15 min FANNY SANDERSON PT May 23, 2017 15:22
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
[2017-05-23 18:04] VITALS: BP 106/67
[2017-05-23] MEDS: MELATONIN 3 MG TABLET PO SCH (20:30)
[2017-05-23] MEDS: ENOXAPARIN 40 MG/0.4 ML (LOVENOX) SYR SC SCH (20:30)
[2017-05-23] MEDS: LIDOCAINE PATCH REMOVAL TP SCH (20:32)
[2017-05-24] MEDS: MULTIVIT W/MINERALS TAB (THERAGRAN M) PO SCH (06:27)
[2017-05-24] MEDS: LACTOBACILLUS Acidoph/Bulgar (LACTINEX/FLORANEX) TAB PO SCH ×3 (06:27→17:08)
[2017-05-24] MEDS: LEVOTHYROXINE 112 MCG (LEVOTHROID) TAB PO SCH (06:27)
[2017-05-24] MEDS: ASCORBIC ACID (VIT C) 500 MG TABLET PO SCH (06:28)
[2017-05-24 06:38] VITALS: BP 116/69
[2017-05-24] MEDS: oxyCODONE/APAP 5/325MG (PERCOCET 5) TABLET PO PRN ×3 (07:26→17:09)
--- NOTE | 2017-05-24 08:24 | Therapy Group Daily Note ---
Therapy Daily Group Note Other/Notes Each patient participated in group therapy in the common area of rehab. Each patient ambulated or was transported to the common area of rehab and placed in a [place] with the other patients. Each patient then had to introduce themselves , state where they were born and perform a memory activity. Then patient's were educated about all aspects of pain (cause, types, how to relieve, etc). During education intermittently patients performed exercises ran by the therapists involving both upper and lower extremities. Patient's participated in the discussion and problem solving and socialization were encouraged. After group therapy each patient ambulated or was transported back to their room and placed in chair or bed with call light and tray. Start Time: 13:00 Stop Time: 14:20 Total Billed Treatment Time: 80 Total Billed Treatment 1 visit GRP 80' This group therapy note is for 05/20/17. DEE GRAHAM PT May 24, 2017 08:24
[2017-05-24] MEDS: LIDOCAINE (LIDODERM) 5% PATCH TOP SCH (08:32)
[2017-05-24] MEDS: metroNIDAZOLE 500 MG (FLAGYL) TAB PO SCH ×3 (08:32→21:13)
[2017-05-24] MEDS: SENNA W/DOCUSATE (SENOKOT S) TABLET PO SCH ×2 (08:33→19:28)
[2017-05-24] MEDS: POLYETHYLENE GLYCOL 17 GM (MIRALAX) PACK PO SCH ×2 (08:33→19:28)
[2017-05-24] MEDS: ceTIRizine 10 MG (ZyrTEC) TAB NON-FORMULARY PO SCH (08:33)
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
--- NOTE | 2017-05-24 12:07 | Physical Therapy Daily Note ---
PT Daily Note-Current Subjective Agrees to PT and OT treatment. Reports she had severe thigh pain this morning that brought her to tears. Nursing aware and following with pain meds. Transfers Functional [place] Measure 0=Not Assessed/NA 4=Minimal Assistance 1=Total Assistance 5=Supervision or Setup 2=Maximal Assistance 6=Modified [place] 3=Moderate Assistance 7=Complete IndependenceIRFPAI Quality Coding Scale 6 Independent with activity with or without an assistive device 5 Patient requires set up or clean up by helper. Patient completes activity by themselves 4 Supervision or touching assist (CGA). [place] provide cues , steadying assist 3 The helper provides less than half the effort to complete the activity 2 The helper provides more than half the effort to complete the activity 1 Dependent. The helper does all the effort to complete an activity 7 Patient refused to complete or attempt activity 9 The patient did not perform the activity before the current illness or injury 88 Not attempted due to Medical conditions or safety concerns Weight Bearing Right Lower Extremity: Right Non Weight Bearing Left Lower Extremity: Left Non Weight Bearing Treatments Co treatment with OT due to the extensive nature of transfers and need for assist with all care. Pt performed bed mobility with min assist to sit up to EOB and mod assist to lie down in bed; requiring skilled cues for sequence and task completion. Slide board transfer to the right x 2 with mod assist to place the board and min assist to complete the transfer; again with skilled cues for sequencing and safety. Pt taken to the shower room to complete a shower. Pt addressed and monitored functional seated dynamic balance as pt performed washing and was required to reach overhead, bend forward; as well as side to side. Pt in bed post treatment with needs met and nursing present to change bandages and remove sutures as directed by physician. Assessment Current Status: Good Progress Pt continues to progress and show gains in regards to tranfers and functional strength; however, she still has limited functional activity tolerance and is exhausted post treatment. She is very motivated and works hard throughout treatment session. PT Short Term Goals Short Term Goals Time Frame: Jun 01, 2017 Transfers (B,C,W/C) (FIM): 4 Wheelchair (FIM): 5 Wheelchair distance (FIM): 3=150 ft Wheelchair Distance: 40 feet PT Manager Of [employer]hibitions [employer] Goals [place] Goals PT [facility] Goals Time Frame: Jun 15, 2017 Transfers (B,C,W/C) (FIM): 6 Sit to Lying (QC): 6 Lying-Sitting on Side/Bed(QC): 6 Sit to Stand (QC): 88 Rollin Roll Left to Right (QC): 6 Chair/Nwb-fo-Hskxq Xfer(QC): 6 (slide board tfr) Car Transfer (QC): 4 Does the Patient Walk: No and Walking Goal NOT indicated Wheelchair (FIM): 6 Wheelchair distance (FIM): 3=150 ft Wheelchair Level of Assist: 6 Wheel 50 feet with 2 turns (QC: 6 Stairs (FIM): 1 1 Step (curb) (QC): 88 4 Steps (QC): 88 12 Steps (QC): 88 Picking up an Object (QC): 88 PT Plan Problem List Problem List: Activity Tolerance, Functional Strength, Safety, Balance, Transfer, Bed Mobility Treatment/Plan Treatment Plan: Continue Plan of Care Treatment Plan: Bed Mobility, Education, Functional Activity Buster, Functional Strength, Group Therapy, Safety, Therapeutic Exercise, Transfers, Other (wc mob) Treatment Duration: Jun 15, 2017 Frequency: At least 5 of 7 days/Wk (IRF) Estimated Hrs Per Day: 1.5 hours per day Patient and/or Family Agrees t: Yes Safety Risks/Education Patient Education: Transfer Techniques, Safety Issues Teaching Recipient: Patient Teaching Methods: Demonstration, Discussion Response to Teaching: Return Demonstration, Reinforcement Needed Time/GCodes Time In: 1100 Time Out: 1200 Total Billed Treatment Time: 60 Total Billed Treatment visit FA 60 (co treat with OT) FANNY CALHOUN PT May 24, 2017 12:07
--- NOTE | 2017-05-24 12:59 | Occupational Ther Daily Note ---
OT Current Status-Daily Note Subjective Pt seen in room, up in bed, agreeable to OT. Still wants to take a shower. Pt reported L thigh pain earlier this morning that left her in tears. Appearance Alert, cooperative Mental Status/Objective Functional [place] Measure 0=Not Assessed/NA 4=Minimal Assistance 1=Total Assistance 5=Supervision or Setup 2=Maximal Assistance 6=Modified [place] 3=Moderate Assistance 7=Complete [place] ADL-Treatment Co-tx with PT, with PT focusing on transfers and sitting balance and OT focusing on ADLs and UE function. Pt continues to get extremely fatigued with activity and was just weaned off oxygen. See PT note for transfer specifics. She transferred to wheeled shower chair, using sliding board, and was transported to shower room. After showering, she was returned to her room and transferred back in bed, for cervical collar to be cleaned and dry pads applied and put back on. Talked with Dr Torres who ordered stitches to come out of R pinky and OK to do active and passive ROM. Pt reported that she had some previous DIP flexion but not as extreme as it ist now, with PIP hyperextension ( swan neck). Pt was able to flex PIP slightly (about 15 degrees) actively. Pt left up in bed, with nursing taking stitches out. All needs met. Pt was very appreciative of shower and getting her hair washed and indicated that all the work was worth it. Functional [place] Measure 0=Not Assessed/NA 4=Minimal Assistance 1=Total Assistance 5=Supervision or Setup 2=Maximal Assistance 6=Modified [place] 3=Moderate Assistance 7=Complete IndependenceIRFPAI Quality Coding Scale 6 Independent with activity with or without an assistive device 5 Patient requires set up or clean up by helper. Patient completes activity by themselves 4 Supervision or touching assist (CGA). [place] provide cues , steadying assist 3 The helper provides less than half the effort to complete the activity 2 The helper provides more than half the effort to complete the activity 1 Dependent. The helper does all the effort to complete an activity 7 Patient refused to complete or attempt activity 9 The patient did not perform the activity before the current illness or injury 88 Not attempted due to Medical conditions or safety concerns Bathing (FIM): 4 (Pt was able to wash and dry all parts except back and bottom , in wheeled shower chair. grab bars, hand held shower. Also was able to wash hair. Cervical collar on during shower. Pt educ use of long handled sponge to wash and dry LEs) Bathing Location: L Arm, R Arm, L Upper Leg, R Upper Leg, L Lower Leg ( including foot), R Lower Leg (including foot), Chest, Abdomen, Perineal Area Shower Transfer(FIM): 3 (Sliding board to shower chair and back to bed) Education OT Patient Education: Modified ADL techniques, Progress toward Goal/Update tx plan, Purpose of tx/functional activities, Safety issues, Use of adapted equipment Teaching Recipient: Patient Teaching Methods: Demonstration Response to Teaching: Return Demonstration OT Short Term Goals Short Term Goals Time Frame: Jun 01, 2017 Eating(FIM): 6 Grooming(FIM): 5 Transfers (B,C,W/C) (FIM): 4 Additional Short Term Goals: 1-Demonstrate ADL Tasks, 2-Verbalize Understanding , 3-ImproveStrength/Buster 1=Demonstrate adherence to instructed precautions during ADL tasks. 2=Patient will verbalize/demonstrate understanding of assistive devices/ modifications for ADL. 3=Patient will improve strength/tolerance for activity to enable patient to perform ADL's. OT Catering Director Goals Catering Director Goals Time Frame: Jun 15, 2017 Eating (FIM): 6 Eating (QC): 6 Groomin Oral Hygiene (QC): 6 Bathing(FIM): 5 Shower/Bathe Self (QC): 5 Upper Body Dressing(FIM): 6 Upper Body Dressing (QC): 6 Lower Body Dressing(FIM): 6 Lower Body Dressing (QC): 6 On/Off Footwear (QC): 6 Toileting(FIM): 6 Toileting Hygiene (QC): 6 Toilet/Commode Transfer(FIM): 6 Toilet/Commode Transfer (QC): 6 Shower Transfer(FIM): 5 Additional Goals: 1-Demonstrate ADL Tasks, 2-Verbalize Understanding, 3- ImproveStrength/Buster 1=Demonstrate adherence to instructed precautions during ADL tasks. 2=Patient will verbalize/demonstrate understanding of assistive devices/ modifications for ADL. 3=Patient will improve strength/tolerance for activity to enable patient to perform ADL's. OT Education/Plan Problem List/Assessment Pt would benefit from skilled OT to increase her independence in basic self care to allow her to safely return to her home and to decrease caregiver burden Discharge Recommendations Plan/Recommendations: Continue POC Treatment Plan/Plan of Care Patient would benefit from OT for education, treatment and training to promote independence in ADL's, mobility, safety and/or upper extremity function for ADL' s. Plan of Care: ADL Retraining, Functional Mobility, Group Exercise/Act as Ind ( education, exercise, act tolerance, socialization, transfers, funct activities) , UE Funct Exercise/Act, UE Neuromus Re-Ed/Coord Treatment Duration: Jun 15, 2017 Frequency: At least 5 of 7 days/Wk (IRF) Estimated Hrs Per Day: 1.5 hours per day Agreement: Yes Rehab Potential: Good Time/GCodes Start Time: 11:00 Stop Time: 12:00 Total Time Billed (hr/min): 60 Billed Treatment Time visit, 60 minutes ADL (co-tx with PT 60 minutes) MICHELE ESPINOZA OT May 24, 2017 12:59
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
[2017-05-24 14:45] LABS: BASOPHILS % (AUTO) 1 % (0-10); EOSINOPHILS # (AUTO) 0.2 10^3/uL (0.0-0.3); EOSINOPHILS % (AUTO) 3 % (0-10); HEMATOCRIT 32 % (35-52); HEMOGLOBIN 9.8 G/DL (11.5-16.0); LYMPHOCYTES # (AUTO) 1.4 X 10^3 (1.0-4.0); LYMPHOCYTES % (AUTO) 20 % (12-44); MEAN CORPUSCULAR HEMOGLOBIN 32 PG (25-34); MEAN CORPUSCULAR HGB CONC 31 G/DL (32-36); MEAN CORPUSCULAR VOLUME 102 FL (80-99); MEAN PLATELET VOLUME 9.7 FL (7.4-10.4); MONOCYTES # (AUTO) 0.5 X 10^3 (0.0-1.0); MONOCYTES % (AUTO) 7 % (0-12); NEUTROPHILS % (AUTO) 70 % (42-75); PLATELET COUNT 405 10^3/uL (130-400); RED CELL DISTRIBUTION WIDTH 16.8 % (10.0-14.5); WHITE BLOOD COUNT 7.1 10^3/uL (4.3-11.0)
[2017-05-24 15:03] LABS: BUN/CREATININE RATIO 28; CALCIUM 8.2 MG/DL (8.5-10.1); CARBON DIOXIDE 24 MMOL/L (21-32); CHLORIDE 103 MMOL/L (98-107); CREATININE SERUM 0.69 MG/DL (0.60-1.30); GFR ESTIMATED > 60; GLUCOSE 126 MG/DL (70-105); POTASSIUM 3.5 MMOL/L (3.6-5.0); SODIUM 139 MMOL/L (135-145)
--- NOTE | 2017-05-24 15:23 | Physical Therapy Daily Note ---
PT Daily Note-Current Subjective Pt. in bed states she is having some cramping in her LEs. States this is not new. Prefers no to get out of bed. Agrees to BLE stretching and movement as well as some bed mobility. Mental Status Patient Orientation: Normal For Age Attachments: Camara Catheter Transfers Functional [place] Measure 0=Not Assessed/NA 4=Minimal Assistance 1=Total Assistance 5=Supervision or Setup 2=Maximal Assistance 6=Modified [place] 3=Moderate Assistance 7=Complete IndependenceIRFPAI Quality Coding Scale 6 Independent with activity with or without an assistive device 5 Patient requires set up or clean up by helper. Patient completes activity by themselves 4 Supervision or touching assist (CGA). [place] provide cues , steadying assist 3 The helper provides less than half the effort to complete the activity 2 The helper provides more than half the effort to complete the activity 1 Dependent. The helper does all the effort to complete an activity 7 Patient refused to complete or attempt activity 9 The patient did not perform the activity before the current illness or injury 88 Not attempted due to Medical conditions or safety concerns rolls left and right SBA, pulled self up in bed using UEs and bed rail with this SECURITY GUARD DISPATCHER managing min assist with bed pad Weight Bearing Right Lower Extremity: Right Non Weight Bearing Left Lower Extremity: Left Non Weight Bearing Exercises Supine Ex: Ankle pumps (bilat HC stretches x 4 at 20 s ea), Rolling, Glut sets , Straight leg raise (bilat HS stretch 4 x 20 s), Hip abd/add (hip abd stretches x3.) Supine Reps: 5 Treatments hooklying int ext hip rot stretches x 5. bilat foot massage and gentle mobilization Assessment Current Status: Good Progress PT Short Term Goals Short Term Goals Time Frame: Jun 01, 2017 Transfers (B,C,W/C) (FIM): 4 Wheelchair (FIM): 5 Wheelchair distance (FIM): 3=150 ft Wheelchair Distance: 40 feet PT Long-Term Goals Engineer [place] [employer] Goals PT Long-Term Goals Time Frame: Jun 15, 2017 Transfers (B,C,W/C) (FIM): 6 Sit to Lying (QC): 6 Lying-Sitting on Side/Bed(QC): 6 Sit to Stand (QC): 88 Rollin Roll Left to Right (QC): 6 Chair/Qhh-fy-Vespv Xfer(QC): 6 (slide board tfr) Car Transfer (QC): 4 Does the Patient Walk: No and Walking Goal NOT indicated Wheelchair (FIM): 6 Wheelchair distance (FIM): 3=150 ft Wheelchair Level of Assist: 6 Wheel 50 feet with 2 turns (QC: 6 Stairs (FIM): 1 1 Step (curb) (QC): 88 4 Steps (QC): 88 12 Steps (QC): 88 Picking up an Object (QC): 88 PT Plan Treatment/Plan Treatment Plan: Continue Plan of Care Treatment Plan: Bed Mobility, Education, Functional Activity Buster, Functional Strength, Group Therapy, Safety, Therapeutic Exercise, Transfers, Other (wc mob) Treatment Duration: Jun 15, 2017 Frequency: At least 5 of 7 days/Wk (IRF) Estimated Hrs Per Day: 1.5 hours per day Patient and/or Family Agrees t: Yes Safety Risks/Education Patient Education: Correct Positioning Teaching Recipient: Patient Teaching Methods: Discussion Response to Teaching: Verbalize Understanding Time/GCodes Time In: 1435 Time Out: 1510 Total Billed Treatment Time: 35 Total Billed Treatment 1,EX20m,FA15m G Codes Necessary: STEPHANIE Casanova SECURITY GUARD DISPATCHER May 24, 2017 15:23
[2017-05-24] MEDS: KCL 8 MEQ (MICRO K) TABLET PO SCH (17:08)
[2017-05-24 18:53] VITALS: BP 104/67
[2017-05-24] MEDS: MELATONIN 3 MG TABLET PO SCH (21:13)
[2017-05-24] MEDS: ENOXAPARIN 40 MG/0.4 ML (LOVENOX) SYR SC SCH (21:13)
[2017-05-24] MEDS: LIDOCAINE PATCH REMOVAL TP SCH (21:13)
[2017-05-25] MEDS: oxyCODONE/APAP 5/325MG (PERCOCET 5) TABLET PO PRN ×4 (02:36→20:53)
[2017-05-25 04:49] VITALS: BP 111/70
[2017-05-25] MEDS: LEVOTHYROXINE 112 MCG (LEVOTHROID) TAB PO SCH (06:31)
[2017-05-25] MEDS: ASCORBIC ACID (VIT C) 500 MG TABLET PO SCH (06:31)
[2017-05-25] MEDS: MULTIVIT W/MINERALS TAB (THERAGRAN M) PO SCH (06:31)
[2017-05-25] MEDS: LACTOBACILLUS Acidoph/Bulgar (LACTINEX/FLORANEX) TAB PO SCH ×3 (06:31→15:01)
[2017-05-25] MEDS: oxyCODONE/APAP 5/325MG (PERCOCET 5) TABLET PO SCH (06:31)
[2017-05-25] MEDS: ceTIRizine 10 MG (ZyrTEC) TAB NON-FORMULARY PO SCH (08:33)
[2017-05-25] MEDS: metroNIDAZOLE 500 MG (FLAGYL) TAB PO SCH ×3 (08:33→20:53)
[2017-05-25] MEDS: SENNA W/DOCUSATE (SENOKOT S) TABLET PO SCH ×2 (08:33→20:53)
[2017-05-25] MEDS: LIDOCAINE (LIDODERM) 5% PATCH TOP SCH (08:33)
[2017-05-25] MEDS: POLYETHYLENE GLYCOL 17 GM (MIRALAX) PACK PO SCH ×2 (08:33→20:53)
--- NOTE | 2017-05-25 08:40 | Occupational Ther Daily Note ---
OT Current Status-Daily Note Subjective late entry for 05-24-17 Pt seen in room, up in bed, agreeable to OT. Appearance Alert, cooperative Mental Status/Objective Functional [place] Measure 0=Not Assessed/NA 4=Minimal Assistance 1=Total Assistance 5=Supervision or Setup 2=Maximal Assistance 6=Modified [place] 3=Moderate Assistance 7=Complete [place] ADL-Treatment Functional [place] Measure 0=Not Assessed/NA 4=Minimal Assistance 1=Total Assistance 5=Supervision or Setup 2=Maximal Assistance 6=Modified [place] 3=Moderate Assistance 7=Complete IndependenceIRFPAI Quality Coding Scale 6 Independent with activity with or without an assistive device 5 Patient requires set up or clean up by helper. Patient completes activity by themselves 4 Supervision or touching assist (CGA). [place] provide cues , steadying assist 3 The helper provides less than half the effort to complete the activity 2 The helper provides more than half the effort to complete the activity 1 Dependent. The helper does all the effort to complete an activity 7 Patient refused to complete or attempt activity 9 The patient did not perform the activity before the current illness or injury 88 Not attempted due to Medical conditions or safety concerns Other Treatment Pt had previously mentioned discomfort in R scapular region. While reclining, pt did 15 reps bilat UE AROM with gentle stretch using pool noodle, working on primarily shoulder range but also elbow. She was able to get full functional shoulder flex bilat and also do horizontal abd/add and elbow flex/ext. Pt reported R shoulder felt better after stretching. She was able to make a full fist with R hand, including R little finger, but is unable to extend its DIP. She believes that the skin flap on volar surface is limiting DIP extension and it will improve as the scab around the incision falls off. Pt was also given red theraputty (medium resistance) with beads imbedded in it, to work on hand strength. Pt was able to find the beads and can work on this on her own. She may need to wear a glove on R hand so that the putty doesn't stick to the dressing. pt left up in bed, 4 rails up, all needs met. Education OT Patient Education: Exercise program Teaching Recipient: Patient Teaching Methods: Demonstration, Discussion Response to Teaching: Return Demonstration OT Short Term Goals Short Term Goals Time Frame: Jun 01, 2017 Eating(FIM): 6 Grooming(FIM): 5 Transfers (B,C,W/C) (FIM): 4 Additional Short Term Goals: 1-Demonstrate ADL Tasks, 2-Verbalize Understanding , 3-ImproveStrength/Buster 1=Demonstrate adherence to instructed precautions during ADL tasks. 2=Patient will verbalize/demonstrate understanding of assistive devices/ modifications for ADL. 3=Patient will improve strength/tolerance for activity to enable patient to perform ADL's. OT [place] Technician Goals [facility] Goals Time Frame: Jun 15, 2017 Eating (FIM): 6 Eating (QC): 6 Groomin Oral Hygiene (QC): 6 Bathing(FIM): 5 Shower/Bathe Self (QC): 5 Upper Body Dressing(FIM): 6 Upper Body Dressing (QC): 6 Lower Body Dressing(FIM): 6 Lower Body Dressing (QC): 6 On/Off Footwear (QC): 6 Toileting(FIM): 6 Toileting Hygiene (QC): 6 Toilet/Commode Transfer(FIM): 6 Toilet/Commode Transfer (QC): 6 Shower Transfer(FIM): 5 Additional Goals: 1-Demonstrate ADL Tasks, 2-Verbalize Understanding, 3- ImproveStrength/Buster 1=Demonstrate adherence to instructed precautions during ADL tasks. 2=Patient will verbalize/demonstrate understanding of assistive devices/ modifications for ADL. 3=Patient will improve strength/tolerance for activity to enable patient to perform ADL's. OT Education/Plan Problem List/Assessment Pt would benefit from skilled OT to increase her independence in basic self care to allow her to safely return to her home and to decrease caregiver burden Discharge Recommendations Plan/Recommendations: Continue POC Treatment Plan/Plan of Care Patient would benefit from OT for education, treatment and training to promote independence in ADL's, mobility, safety and/or upper extremity function for ADL' s. Plan of Care: ADL Retraining, Functional Mobility, Group Exercise/Act as Ind ( education, exercise, act tolerance, socialization, transfers, funct activities) , UE Funct Exercise/Act, UE Neuromus Re-Ed/Coord Treatment Duration: Jun 15, 2017 Frequency: At least 5 of 7 days/Wk (IRF) Estimated Hrs Per Day: 1.5 hours per day Agreement: Yes Rehab Potential: Good Time/GCodes Start Time: 15:10 Stop Time: 15:40 Total Time Billed (hr/min): 30 Billed Treatment Time visit, 30 minutes exercise late entry for 05-24-17 MICHELE ESPINOZA OT May 25, 2017 08:40
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
--- NOTE | 2017-05-25 12:14 | Physical Therapy Daily Note ---
PT Daily Note-Current Subjective Agreeable to PT. Transfers Functional [place] Measure 0=Not Assessed/NA 4=Minimal Assistance 1=Total Assistance 5=Supervision or Setup 2=Maximal Assistance 6=Modified [place] 3=Moderate Assistance 7=Complete IndependenceIRFPAI Quality Coding Scale 6 Independent with activity with or without an assistive device 5 Patient requires set up or clean up by helper. Patient completes activity by themselves 4 Supervision or touching assist (CGA). [place] provide cues , steadying assist 3 The helper provides less than half the effort to complete the activity 2 The helper provides more than half the effort to complete the activity 1 Dependent. The helper does all the effort to complete an activity 7 Patient refused to complete or attempt activity 9 The patient did not perform the activity before the current illness or injury 88 Not attempted due to Medical conditions or safety concerns Transfers (B, C, W/C) (FIM): 3 Roll Left to Right (QC): 4 Sit to Lying (QC): 3 (mod assist with B LE;s) Chair/Qrq-yx-Felhp Xfer(QC): 4 (cGA with slide board transfer) Working on bed mobility with rolling left and right as well as transisiton sit to from supine. Slide board transfer bed to chair with CGA. Practiced slide board transfer wc to shower bench in the shower in her room as a dry run to prepare for when she is ready to shower again and can sit on the bench rather than a large bulky shower chair. Co treat with OT this visit due to the multiple tranfers performed. OT was able to address self care such as bathing and dressing; whilst PT addressed the tranfers and bed mobility. PT and OT collaborated on the dry run shower transfer so that OT would be able to complete the transfer when patient was ready to use the shower bench for showering in her room. As pt was mobilizing to go to her bathroom sink for oral care; PT facilitated wheelchair mobility and directed safety and turning in her room and the bathroom. Weight Bearing Right Lower Extremity: Right Non Weight Bearing Left Lower Extremity: Left Non Weight Bearing Assessment Current Status: Good Progress Pt's tranfers are improving and at the end of treatment today, she was able to sit herself up from supine with only SBA. She did well with the slide board transfers and is able to slide on/off the shower bench. Progressing well. PT Short Term Goals Short Term Goals Time Frame: Jun 01, 2017 Transfers (B,C,W/C) (FIM): 4 Wheelchair (FIM): 5 Wheelchair distance (FIM): 3=150 ft Wheelchair Distance: 40 feet PT [place] Goals [facility] Goals PT [place] Goals Time Frame: Jun 15, 2017 Transfers (B,C,W/C) (FIM): 6 Sit to Lying (QC): 6 Lying-Sitting on Side/Bed(QC): 6 Sit to Stand (QC): 88 Rollin Roll Left to Right (QC): 6 Chair/Nse-be-Cptxc Xfer(QC): 6 (slide board tfr) Car Transfer (QC): 4 Does the Patient Walk: No and Walking Goal NOT indicated Wheelchair (FIM): 6 Wheelchair distance (FIM): 3=150 ft Wheelchair Level of Assist: 6 Wheel 50 feet with 2 turns (QC: 6 Stairs (FIM): 1 1 Step (curb) (QC): 88 4 Steps (QC): 88 12 Steps (QC): 88 Picking up an Object (QC): 88 PT Plan Problem List Problem List: Activity Tolerance, Functional Strength, Safety, Balance, Transfer, Bed Mobility Treatment/Plan Treatment Plan: Continue Plan of Care Treatment Plan: Bed Mobility, Education, Functional Activity Buster, Functional Strength, Group Therapy, Safety, Therapeutic Exercise, Transfers, Other (wc mob) Treatment Duration: Jun 15, 2017 Frequency: At least 5 of 7 days/Wk (IRF) Estimated Hrs Per Day: 1.5 hours per day Patient and/or Family Agrees t: Yes Safety Risks/Education Patient Education: Transfer Techniques Teaching Recipient: Patient Teaching Methods: Demonstration, Discussion Response to Teaching: Return Demonstration Time/GCodes Time In: 1000 Time Out: 1100 Total Billed Treatment Time: 60 Total Billed Treatment visit FA 45 WC 15 co treat with OT 60 min FANNY CALHOUN PT May 25, 2017 12:14
--- NOTE | 2017-05-25 13:42 | Occupational Ther Daily Note ---
OT Current Status-Daily Note Subjective Pt seen in room, up in bed, agreeable to OT. Pt reported she had a sore place over L scapula but it was better after pain meds. Appearance Alert, cooperative Mental Status/Objective Functional [place] Measure 0=Not Assessed/NA 4=Minimal Assistance 1=Total Assistance 5=Supervision or Setup 2=Maximal Assistance 6=Modified [place] 3=Moderate Assistance 7=Complete [place] ADL-Treatment Co-tx with PT due to patient extreme fatigue, with OT focusing on ADLs and PT focusing on transfers and balance. See PT note for specifics on transfers from bed to w/c. Practiced dry run transfer from w/c to shower bench and back, using sliding board and also grab bars. Pt able to complete it with min-CGA, with problem solving for technique and hand placement. Pt was able to brush her teeth with setup at sink, w/c level. Pt also at EOB to complete sponge bath and was able to wash [place] in front and bottom by lying supine, HOB slightly elevated. Rolled side to side to reach bottom. Donned shirt with setup. Functional [place] Measure 0=Not Assessed/NA 4=Minimal Assistance 1=Total Assistance 5=Supervision or Setup 2=Maximal Assistance 6=Modified [place] 3=Moderate Assistance 7=Complete IndependenceIRFPAI Quality Coding Scale 6 Independent with activity with or without an assistive device 5 Patient requires set up or clean up by helper. Patient completes activity by themselves 4 Supervision or touching assist (CGA). [place] provide cues , steadying assist 3 The helper provides less than half the effort to complete the activity 2 The helper provides more than half the effort to complete the activity 1 Dependent. The helper does all the effort to complete an activity 7 Patient refused to complete or attempt activity 9 The patient did not perform the activity before the current illness or injury 88 Not attempted due to Medical conditions or safety concerns Grooming (FIM): 5 Bathing (FIM): 5 Upper Body (FIM): 5 Education OT Patient Education: Modified ADL techniques, Purpose of tx/functional activities, Safety issues, Transfer techniques, Use of adapted equipment Teaching Recipient: Patient Teaching Methods: Demonstration, Discussion Response to Teaching: Verbalize Understanding, Return Demonstration OT Short Term Goals Short Term Goals Time Frame: Jun 01, 2017 Eating(FIM): 6 Grooming(FIM): 5 Transfers (B,C,W/C) (FIM): 4 Additional Short Term Goals: 1-Demonstrate ADL Tasks, 2-Verbalize Understanding , 3-ImproveStrength/Buster 1=Demonstrate adherence to instructed precautions during ADL tasks. 2=Patient will verbalize/demonstrate understanding of assistive devices/ modifications for ADL. 3=Patient will improve strength/tolerance for activity to enable patient to perform ADL's. OT [place] Goals Sanitary Aide Goals Time Frame: Jun 15, 2017 Eating (FIM): 6 Eating (QC): 6 Groomin Oral Hygiene (QC): 6 Bathing(FIM): 5 Shower/Bathe Self (QC): 5 Upper Body Dressing(FIM): 6 Upper Body Dressing (QC): 6 Lower Body Dressing(FIM): 6 Lower Body Dressing (QC): 6 On/Off Footwear (QC): 6 Toileting(FIM): 6 Toileting Hygiene (QC): 6 Toilet/Commode Transfer(FIM): 6 Toilet/Commode Transfer (QC): 6 Shower Transfer(FIM): 5 Additional Goals: 1-Demonstrate ADL Tasks, 2-Verbalize Understanding, 3- ImproveStrength/Buster 1=Demonstrate adherence to instructed precautions during ADL tasks. 2=Patient will verbalize/demonstrate understanding of assistive devices/ modifications for ADL. 3=Patient will improve strength/tolerance for activity to enable patient to perform ADL's. OT Education/Plan Problem List/Assessment Pt would benefit from skilled OT to increase her independence in basic self care to allow her to safely return to her home and to decrease caregiver burden Discharge Recommendations Plan/Recommendations: Continue POC Treatment Plan/Plan of Care Patient would benefit from OT for education, treatment and training to promote independence in ADL's, mobility, safety and/or upper extremity function for ADL' s. Plan of Care: ADL Retraining, Functional Mobility, Group Exercise/Act as Ind ( education, exercise, act tolerance, socialization, transfers, funct activities) , UE Funct Exercise/Act, UE Neuromus Re-Ed/Coord Treatment Duration: Jun 15, 2017 Frequency: At least 5 of 7 days/Wk (IRF) Estimated Hrs Per Day: 1.5 hours per day Agreement: Yes Rehab Potential: Good Time/GCodes Start Time: 10:00 Stop Time: 11:00 Total Time Billed (hr/min): 60 Billed Treatment Time visit, 60 minutes ADL MICHELE ESPINOZA OT May 25, 2017 13:42
--- NOTE | 2017-05-25 13:43 | Occupational Ther Daily Note ---
OT Current Status-Daily Note Subjective Pt seen in room, up in w/c, agreeable to OT. Pt mentioned pain r ribs "I think I 'm just now paying attention to it." Appearance Alert, cooperative Mental Status/Objective Functional [place] Measure 0=Not Assessed/NA 4=Minimal Assistance 1=Total Assistance 5=Supervision or Setup 2=Maximal Assistance 6=Modified [place] 3=Moderate Assistance 7=Complete [place] ADL-Treatment Functional [place] Measure 0=Not Assessed/NA 4=Minimal Assistance 1=Total Assistance 5=Supervision or Setup 2=Maximal Assistance 6=Modified [place] 3=Moderate Assistance 7=Complete IndependenceIRFPAI Quality Coding Scale 6 Independent with activity with or without an assistive device 5 Patient requires set up or clean up by helper. Patient completes activity by themselves 4 Supervision or touching assist (CGA). [place] provide cues , steadying assist 3 The helper provides less than half the effort to complete the activity 2 The helper provides more than half the effort to complete the activity 1 Dependent. The helper does all the effort to complete an activity 7 Patient refused to complete or attempt activity 9 The patient did not perform the activity before the current illness or injury 88 Not attempted due to Medical conditions or safety concerns Other Treatment Pt did bilat UE ex with 1# exercise bar, to strengthen arms to help with transfers and ADLs. Unable to do shoulder flex with elbows extended but could do it with hands closer to body (including elbow extension). Did 5 reps x several sets. Also able to do elbow flex/ext, horizontal abd/add, wrist flex/ ext with bar. Pt also did AROM bilat shoulders, with holding several seconds. Skilled cues to relax L shoulder to equal R. Pt reported that her L shoulder felt better and wasn't having pain. pt left up in recliner, all needs met. Education OT Patient Education: Exercise program Teaching Recipient: Patient Teaching Methods: Demonstration, Discussion Response to Teaching: Verbalize Understanding, Return Demonstration OT Short Term Goals Short Term Goals Time Frame: Jun 01, 2017 Eating(FIM): 6 Grooming(FIM): 5 Transfers (B,C,W/C) (FIM): 4 Additional Short Term Goals: 1-Demonstrate ADL Tasks, 2-Verbalize Understanding , 3-ImproveStrength/Buster 1=Demonstrate adherence to instructed precautions during ADL tasks. 2=Patient will verbalize/demonstrate understanding of assistive devices/ modifications for ADL. 3=Patient will improve strength/tolerance for activity to enable patient to perform ADL's. OT Tractor Operator Laser Leveling Goals Tractor Operator Laser Leveling Goals Time Frame: Jun 15, 2017 Eating (FIM): 6 Eating (QC): 6 Groomin Oral Hygiene (QC): 6 Bathing(FIM): 5 Shower/Bathe Self (QC): 5 Upper Body Dressing(FIM): 6 Upper Body Dressing (QC): 6 Lower Body Dressing(FIM): 6 Lower Body Dressing (QC): 6 On/Off Footwear (QC): 6 Toileting(FIM): 6 Toileting Hygiene (QC): 6 Toilet/Commode Transfer(FIM): 6 Toilet/Commode Transfer (QC): 6 Shower Transfer(FIM): 5 Additional Goals: 1-Demonstrate ADL Tasks, 2-Verbalize Understanding, 3- ImproveStrength/Buster 1=Demonstrate adherence to instructed precautions during ADL tasks. 2=Patient will verbalize/demonstrate understanding of assistive devices/ modifications for ADL. 3=Patient will improve strength/tolerance for activity to enable patient to perform ADL's. OT Education/Plan Problem List/Assessment Pt would benefit from skilled OT to increase her independence in basic self care to allow her to safely return to her home and to decrease caregiver burden Discharge Recommendations Plan/Recommendations: Continue POC Treatment Plan/Plan of Care Patient would benefit from OT for education, treatment and training to promote independence in ADL's, mobility, safety and/or upper extremity function for ADL' s. Plan of Care: ADL Retraining, Functional Mobility, Group Exercise/Act as Ind ( education, exercise, act tolerance, socialization, transfers, funct activities) , UE Funct Exercise/Act, UE Neuromus Re-Ed/Coord Treatment Duration: Jun 15, 2017 Frequency: At least 5 of 7 days/Wk (IRF) Estimated Hrs Per Day: 1.5 hours per day Agreement: Yes Rehab Potential: Good Time/GCodes Start Time: 13:00 Stop Time: 13:30 Total Time Billed (hr/min): 30 Billed Treatment Time visit, 30 minutes exercise MICHELE ESPINOZA OT May 25, 2017 13:43
--- NOTE | 2017-05-25 14:43 | Physical Therapy Daily Note ---
PT Daily Note-Current Subjective Agrees to PT. Reports she is enjoying being up in the chair. Transfers Functional [place] Measure 0=Not Assessed/NA 4=Minimal Assistance 1=Total Assistance 5=Supervision or Setup 2=Maximal Assistance 6=Modified [place] 3=Moderate Assistance 7=Complete IndependenceIRFPAI Quality Coding Scale 6 Independent with activity with or without an assistive device 5 Patient requires set up or clean up by helper. Patient completes activity by themselves 4 Supervision or touching assist (CGA). [place] provide cues , steadying assist 3 The helper provides less than half the effort to complete the activity 2 The helper provides more than half the effort to complete the activity 1 Dependent. The helper does all the effort to complete an activity 7 Patient refused to complete or attempt activity 9 The patient did not perform the activity before the current illness or injury 88 Not attempted due to Medical conditions or safety concerns Weight Bearing Right Lower Extremity: Right Non Weight Bearing Left Lower Extremity: Left Non Weight Bearing Treatments Wheelchair mobility in room, length of the room back and forth x 15 minutes, SBA. Seated B LE ther ex x15 for AP/heel raises, LAQ, hip abduct/add; and hip flexion (left only). Pt up in wheelchair post treatment with needs met. Assessment Toelrated wheelchair mobility well. PT Short Term Goals Short Term Goals Time Frame: Jun 01, 2017 Transfers (B,C,W/C) (FIM): 4 Wheelchair (FIM): 5 Wheelchair distance (FIM): 3=150 ft Wheelchair Distance: 40 feet PT Land Inspector Goals Long-Term Goals PT Land Inspector Goals Time Frame: Jun 15, 2017 Transfers (B,C,W/C) (FIM): 6 Sit to Lying (QC): 6 Lying-Sitting on Side/Bed(QC): 6 Sit to Stand (QC): 88 Rollin Roll Left to Right (QC): 6 Chair/Lqh-nt-Pvvbo Xfer(QC): 6 (slide board tfr) Car Transfer (QC): 4 Does the Patient Walk: No and Walking Goal NOT indicated Wheelchair (FIM): 6 Wheelchair distance (FIM): 3=150 ft Wheelchair Level of Assist: 6 Wheel 50 feet with 2 turns (QC: 6 Stairs (FIM): 1 1 Step (curb) (QC): 88 4 Steps (QC): 88 12 Steps (QC): 88 Picking up an Object (QC): 88 PT Plan Problem List Problem List: Activity Tolerance, Functional Strength, Safety Treatment/Plan Treatment Plan: Continue Plan of Care Treatment Plan: Bed Mobility, Education, Functional Activity Buster, Functional Strength, Group Therapy, Safety, Therapeutic Exercise, Transfers, Other ([facility]) Treatment Duration: Jun 15, 2017 Frequency: At least 5 of 7 days/Wk (IRF) Estimated Hrs Per Day: 1.5 hours per day Patient and/or Family Agrees t: Yes Time/GCodes Time In: 1230 Time Out: 1300 Total Billed Treatment Time: 30 Total Billed Treatment vsiit [facility] 15 EX 15 FANNY CALHOUN PT May 25, 2017 14:43
[2017-05-25] MEDS: KCL 8 MEQ (MICRO K) TABLET PO SCH (17:25)
[2017-05-25 19:26] VITALS: BP 112/70
[2017-05-25] MEDS: MELATONIN 3 MG TABLET PO SCH (20:53)
[2017-05-25] MEDS: ENOXAPARIN 40 MG/0.4 ML (LOVENOX) SYR SC SCH (20:53)
[2017-05-25] MEDS: LIDOCAINE PATCH REMOVAL TP SCH (20:53)
[2017-05-26 04:54] VITALS: BP 104/68
[2017-05-26] MEDS: LEVOTHYROXINE 112 MCG (LEVOTHROID) TAB PO SCH (06:20)
[2017-05-26] MEDS: ASCORBIC ACID (VIT C) 500 MG TABLET PO SCH (06:20)
[2017-05-26] MEDS: LACTOBACILLUS Acidoph/Bulgar (LACTINEX/FLORANEX) TAB PO SCH ×3 (06:20→16:42)
[2017-05-26] MEDS: MULTIVIT W/MINERALS TAB (THERAGRAN M) PO SCH (06:20)
[2017-05-26] MEDS: oxyCODONE/APAP 5/325MG (PERCOCET 5) TABLET PO SCH (06:21)
[2017-05-26] MEDS: LIDOCAINE (LIDODERM) 5% PATCH TOP SCH (08:39)
[2017-05-26] MEDS: metroNIDAZOLE 500 MG (FLAGYL) TAB PO SCH ×3 (08:39→20:11)
[2017-05-26] MEDS: SENNA W/DOCUSATE (SENOKOT S) TABLET PO SCH ×2 (08:39→20:12)
[2017-05-26] MEDS: ceTIRizine 10 MG (ZyrTEC) TAB NON-FORMULARY PO SCH (08:39)
[2017-05-26] MEDS: POLYETHYLENE GLYCOL 17 GM (MIRALAX) PACK PO SCH ×2 (08:40→20:12)
--- NOTE | 2017-05-26 11:13 | Physical Therapy Daily Note ---
PT Daily Note-Current Subjective Agreeable to PT. No complaints. Transfers Functional [place] Measure 0=Not Assessed/NA 4=Minimal Assistance 1=Total Assistance 5=Supervision or Setup 2=Maximal Assistance 6=Modified [place] 3=Moderate Assistance 7=Complete IndependenceIRFPAI Quality Coding Scale 6 Independent with activity with or without an assistive device 5 Patient requires set up or clean up by helper. Patient completes activity by themselves 4 Supervision or touching assist (CGA). [place] provide cues , steadying assist 3 The helper provides less than half the effort to complete the activity 2 The helper provides more than half the effort to complete the activity 1 Dependent. The helper does all the effort to complete an activity 7 Patient refused to complete or attempt activity 9 The patient did not perform the activity before the current illness or injury 88 Not attempted due to Medical conditions or safety concerns Weight Bearing Right Lower Extremity: Right Non Weight Bearing Left Lower Extremity: Left Non Weight Bearing Treatments Partial co treatment with OT. Worked on functional bed mobility and transfers; pt able to transfer sup to sit EOB with SBA only. Sat EOB and worked on functional balance while she removed her socks. Slide board transfer bed to wheelchair to shower bench back to wheelchair. Pt is CGA with slide board tranfer all directions except off the wet shower bench, needed slightly more assist. Pt shower, PT monitored seated balance as pt leaned left to right and forward to fully bathe. Pt propelled herself in the room with SBA using B UE's. Pt up in chair with OT post treatment. Individual treatment 105 Co treat [id number] Assessment Current Status: Good Progress Progressing well. Still limited to in room activities due to C diff. Tranfers improving. PT Short Term Goals Short Term Goals Time Frame: Jun 01, 2017 Transfers (B,C,W/C) (FIM): 4 (met) Wheelchair (FIM): 5 (met) Wheelchair distance (FIM): 3=150 ft Wheelchair Distance: 40 feet PT Mcfp Goals Brick Setter Operator Goals PT Brick Setter Operator Goals Time Frame: Jun 15, 2017 Transfers (B,C,W/C) (FIM): 6 Sit to Lying (QC): 6 Lying-Sitting on Side/Bed(QC): 6 Sit to Stand (QC): 88 Rollin Roll Left to Right (QC): 6 Chair/Mia-sx-Bhoac Xfer(QC): 6 (slide board tfr) Car Transfer (QC): 4 Does the Patient Walk: No and Walking Goal NOT indicated Wheelchair (FIM): 6 Wheelchair distance (FIM): 3=150 ft Wheelchair Level of Assist: 6 Wheel 50 feet with 2 turns (QC: 6 Stairs (FIM): 1 1 Step (curb) (QC): 88 4 Steps (QC): 88 12 Steps (QC): 88 Picking up an Object (QC): 88 PT Plan Problem List Problem List: Activity Tolerance, Functional Strength, Safety, Balance, Transfer, Bed Mobility Treatment/Plan Treatment Plan: Continue Plan of Care Treatment Plan: Bed Mobility, Education, Functional Activity Buster, Functional Strength, Group Therapy, Safety, Therapeutic Exercise, Transfers, Other (wc mob) Treatment Duration: Jun 15, 2017 Frequency: At least 5 of 7 days/Wk (IRF) Estimated Hrs Per Day: 1.5 hours per day Patient and/or Family Agrees t: Yes Safety Risks/Education Patient Education: Transfer Techniques, Safety Issues Teaching Recipient: Patient Teaching Methods: Demonstration, Discussion Response to Teaching: Return Demonstration Time/GCodes Time In: 1000 Time Out: 1100 Total Billed Treatment Time: 60 Total Billed Treatment visit FA 45 WC 15 individual treat 15 min; co treatment 45 minutes. FANNY CALHOUN PT May 26, 2017 11:13
[2017-05-26] MEDS: oxyCODONE/APAP 5/325MG (PERCOCET 5) TABLET PO PRN ×3 (11:53→21:48)
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
--- NOTE | 2017-05-26 12:29 | Occupational Ther Daily Note ---
OT Current Status-Daily Note Subjective Pt seen in room, up in w/c with PT, ready for shower. No pain mentioned. Appearance Alert, cooperative Mental Status/Objective Functional [place] Measure 0=Not Assessed/NA 4=Minimal Assistance 1=Total Assistance 5=Supervision or Setup 2=Maximal Assistance 6=Modified [place] 3=Moderate Assistance 7=Complete [place] ADL-Treatment pt propelled w/c to bathroom and brushed teeth at sink, locking brakes appropriately. Pt helped position w/c for sliding board transfer on and off shower bench in room. Min assist needed to transfer back to w/c due to being damp. See PT note for specifics. Once up, cervical collar pads replaced with dry ones. Pt was able to put slipper socks on with setup using sock aid and chose to wear only a hospital gown. She is still confined to room with c diff but reported she had a large semiformed BM this morning. Co tx with PT for 45 minutes, with OT focusing on ADLs and UE function and PT focusing on transfers and balance. Functional [place] Measure 0=Not Assessed/NA 4=Minimal Assistance 1=Total Assistance 5=Supervision or Setup 2=Maximal Assistance 6=Modified [place] 3=Moderate Assistance 7=Complete IndependenceIRFPAI Quality Coding Scale 6 Independent with activity with or without an assistive device 5 Patient requires set up or clean up by helper. Patient completes activity by themselves 4 Supervision or touching assist (CGA). [place] provide cues , steadying assist 3 The helper provides less than half the effort to complete the activity 2 The helper provides more than half the effort to complete the activity 1 Dependent. The helper does all the effort to complete an activity 7 Patient refused to complete or attempt activity 9 The patient did not perform the activity before the current illness or injury 88 Not attempted due to Medical conditions or safety concerns Grooming (FIM): 6 (w/c level to brush teeth, comb hair.) Bathing (FIM): 5 (Pt washed and dried all parts including back, using shower bench, grab bars, hand held shower, long handled sponge) Shower Transfer(FIM): 4 Other Treatment Pt did 15 reps bilat shoulder/elbow exercises with 1# exercise bar, to strengthen arms to help with transfers and to mobilize L scapula where she had spasm yesterday. Pt used R little finger actively in grasp and release on bar, stretching DIP herself manually. Pt left up in w/c, all needs met. Education OT Patient Education: Exercise program, Modified ADL techniques, Purpose of tx/ functional activities, Safety issues, Transfer techniques Teaching Recipient: Patient Teaching Methods: Discussion Response to Teaching: Verbalize Understanding, Return Demonstration OT Short Term Goals Short Term Goals Time Frame: Jun 01, 2017 Eating(FIM): 6 Grooming(FIM): 5 Transfers (B,C,W/C) (FIM): 4 (met) Additional Short Term Goals: 1-Demonstrate ADL Tasks, 2-Verbalize Understanding , 3-ImproveStrength/Buster 1=Demonstrate adherence to instructed precautions during ADL tasks. 2=Patient will verbalize/demonstrate understanding of assistive devices/ modifications for ADL. 3=Patient will improve strength/tolerance for activity to enable patient to perform ADL's. OT Project Development Coordinator Goals Mcc Goals Time Frame: Jun 15, 2017 Eating (FIM): 6 Eating (QC): 6 Groomin Oral Hygiene (QC): 6 Bathing(FIM): 5 Shower/Bathe Self (QC): 5 Upper Body Dressing(FIM): 6 Upper Body Dressing (QC): 6 Lower Body Dressing(FIM): 6 Lower Body Dressing (QC): 6 On/Off Footwear (QC): 6 Toileting(FIM): 6 Toileting Hygiene (QC): 6 Toilet/Commode Transfer(FIM): 6 Toilet/Commode Transfer (QC): 6 Shower Transfer(FIM): 5 Additional Goals: 1-Demonstrate ADL Tasks, 2-Verbalize Understanding, 3- ImproveStrength/Buster 1=Demonstrate adherence to instructed precautions during ADL tasks. 2=Patient will verbalize/demonstrate understanding of assistive devices/ modifications for ADL. 3=Patient will improve strength/tolerance for activity to enable patient to perform ADL's. OT Education/Plan Problem List/Assessment Pt would benefit from skilled OT to increase her independence in basic self care to allow her to safely return to her home and to decrease caregiver burden Discharge Recommendations Plan/Recommendations: Continue POC Treatment Plan/Plan of Care Patient would benefit from OT for education, treatment and training to promote independence in ADL's, mobility, safety and/or upper extremity function for ADL' s. Plan of Care: ADL Retraining, Functional Mobility, Group Exercise/Act as Ind ( education, exercise, act tolerance, socialization, transfers, funct activities) , UE Funct Exercise/Act, UE Neuromus Re-Ed/Coord Treatment Duration: Jun 15, 2017 Frequency: At least 5 of 7 days/Wk (IRF) Estimated Hrs Per Day: 1.5 hours per day Agreement: Yes Rehab Potential: Good Time/GCodes Start Time: 10:15 Stop Time: 11:15 Total Time Billed (hr/min): 60 Billed Treatment Time visit, ADL 45 minutes, exercise 15 minutes, co-tx with PT from 1015 to 1100 and individual tx from 1100 to 1115 MICHELE ESPINOZA OT May 26, 2017 12:29
--- NOTE | 2017-05-26 15:48 | Physical Therapy Daily Note ---
PT Daily Note-Current Subjective Agreeable. Expresses that she likes to be up in the chair. Transfers Functional [place] Measure 0=Not Assessed/NA 4=Minimal Assistance 1=Total Assistance 5=Supervision or Setup 2=Maximal Assistance 6=Modified [place] 3=Moderate Assistance 7=Complete IndependenceIRFPAI Quality Coding Scale 6 Independent with activity with or without an assistive device 5 Patient requires set up or clean up by helper. Patient completes activity by themselves 4 Supervision or touching assist (CGA). [place] provide cues , steadying assist 3 The helper provides less than half the effort to complete the activity 2 The helper provides more than half the effort to complete the activity 1 Dependent. The helper does all the effort to complete an activity 7 Patient refused to complete or attempt activity 9 The patient did not perform the activity before the current illness or injury 88 Not attempted due to Medical conditions or safety concerns Weight Bearing Right Lower Extremity: Right Non Weight Bearing Left Lower Extremity: Left Non Weight Bearing Wheelchair Training Does the Pt Use a Wheelchair?: Yes Wheelchair (FIM): 5 Wheelchair Distance: 3=150 ft Type of Wheelchair: Manual wheelchair mobility x 20 minutes with SBA. Treatments Seated B LE ther ex x 15 for AP, LAQ, hip abduct. Pt in room post treatment in wheelchair with needs met. Assessment Current Status: Good Progress Increased wheelchair mobility time. PT Short Term Goals Short Term Goals Time Frame: Jun 01, 2017 Transfers (B,C,W/C) (FIM): 4 (met) Wheelchair (FIM): 5 (met) Wheelchair distance (FIM): 3=150 ft Wheelchair Distance: 40 feet PT Senior Care Goals Senior Care Goals PT Hot Air Furnace Installer And Repairer Goals Time Frame: Jun 15, 2017 Transfers (B,C,W/C) (FIM): 6 Sit to Lying (QC): 6 Lying-Sitting on Side/Bed(QC): 6 Sit to Stand (QC): 88 Rollin Roll Left to Right (QC): 6 Chair/Zna-bl-Aszgt Xfer(QC): 6 (slide board tfr) Car Transfer (QC): 4 Does the Patient Walk: No and Walking Goal NOT indicated Wheelchair (FIM): 6 Wheelchair distance (FIM): 3=150 ft Wheelchair Level of Assist: 6 Wheel 50 feet with 2 turns (QC: 6 Stairs (FIM): 1 1 Step (curb) (QC): 88 4 Steps (QC): 88 12 Steps (QC): 88 Picking up an Object (QC): 88 PT Plan Problem List Problem List: Activity Tolerance, Functional Strength, Safety Treatment/Plan Treatment Plan: Continue Plan of Care Treatment Plan: Bed Mobility, Education, Functional Activity Buster, Functional Strength, Group Therapy, Safety, Therapeutic Exercise, Transfers, Other (wc mob) Treatment Duration: Jun 15, 2017 Frequency: At least 5 of 7 days/Wk (IRF) Estimated Hrs Per Day: 1.5 hours per day Patient and/or Family Agrees t: Yes Time/GCodes Time In: 1300 Time Out: 1330 Total Billed Treatment Time: 30 Total Billed Treatment visit WC 20 EX 10 FANNY CALHOUN PT May 26, 2017 15:48
--- NOTE | 2017-05-26 16:33 | Occupational Ther Daily Note ---
OT Current Status-Daily Note Subjective Pt seen in room, up in w/c, agreeable to OT. No pain mentioned. Appearance Alert, cooperative Mental Status/Objective Functional [place] Measure 0=Not Assessed/NA 4=Minimal Assistance 1=Total Assistance 5=Supervision or Setup 2=Maximal Assistance 6=Modified [place] 3=Moderate Assistance 7=Complete [place] ADL-Treatment Functional [place] Measure 0=Not Assessed/NA 4=Minimal Assistance 1=Total Assistance 5=Supervision or Setup 2=Maximal Assistance 6=Modified [place] 3=Moderate Assistance 7=Complete IndependenceIRFPAI Quality Coding Scale 6 Independent with activity with or without an assistive device 5 Patient requires set up or clean up by helper. Patient completes activity by themselves 4 Supervision or touching assist (CGA). [place] provide cues , steadying assist 3 The helper provides less than half the effort to complete the activity 2 The helper provides more than half the effort to complete the activity 1 Dependent. The helper does all the effort to complete an activity 7 Patient refused to complete or attempt activity 9 The patient did not perform the activity before the current illness or injury 88 Not attempted due to Medical conditions or safety concerns Other Treatment Pt did tabletop activity with 1# weight on each arm, to strengthen arms for transfers. She also worked with theraputty, learning two additional exercises that she could do in her room. Pt left up in w/c, all needs met. Education OT Patient Education: Exercise program Teaching Recipient: Patient Teaching Methods: Demonstration Response to Teaching: Return Demonstration OT Short Term Goals Short Term Goals Time Frame: Jun 01, 2017 Eating(FIM): 6 Grooming(FIM): 5 Transfers (B,C,W/C) (FIM): 4 (met) Additional Short Term Goals: 1-Demonstrate ADL Tasks, 2-Verbalize Understanding , 3-ImproveStrength/Buster 1=Demonstrate adherence to instructed precautions during ADL tasks. 2=Patient will verbalize/demonstrate understanding of assistive devices/ modifications for ADL. 3=Patient will improve strength/tolerance for activity to enable patient to perform ADL's. OT Residential Goals Residential Goals Time Frame: Jun 15, 2017 Eating (FIM): 6 Eating (QC): 6 Groomin Oral Hygiene (QC): 6 Bathing(FIM): 5 Shower/Bathe Self (QC): 5 Upper Body Dressing(FIM): 6 Upper Body Dressing (QC): 6 Lower Body Dressing(FIM): 6 Lower Body Dressing (QC): 6 On/Off Footwear (QC): 6 Toileting(FIM): 6 Toileting Hygiene (QC): 6 Toilet/Commode Transfer(FIM): 6 Toilet/Commode Transfer (QC): 6 Shower Transfer(FIM): 5 Additional Goals: 1-Demonstrate ADL Tasks, 2-Verbalize Understanding, 3- ImproveStrength/Buster 1=Demonstrate adherence to instructed precautions during ADL tasks. 2=Patient will verbalize/demonstrate understanding of assistive devices/ modifications for ADL. 3=Patient will improve strength/tolerance for activity to enable patient to perform ADL's. OT Education/Plan Problem List/Assessment Pt would benefit from skilled OT to increase her independence in basic self care to allow her to safely return to her home and to decrease caregiver burden Discharge Recommendations Plan/Recommendations: Continue POC Treatment Plan/Plan of Care Patient would benefit from OT for education, treatment and training to promote independence in ADL's, mobility, safety and/or upper extremity function for ADL' s. Plan of Care: ADL Retraining, Functional Mobility, Group Exercise/Act as Ind ( education, exercise, act tolerance, socialization, transfers, funct activities) , UE Funct Exercise/Act, UE Neuromus Re-Ed/Coord Treatment Duration: Jun 15, 2017 Frequency: At least 5 of 7 days/Wk (IRF) Estimated Hrs Per Day: 1.5 hours per day Agreement: Yes Rehab Potential: Good Time/GCodes Start Time: 12:30 Stop Time: 13:00 Total Time Billed (hr/min): 30 Billed Treatment Time visit, 30 minutes exercise MICHELE ESPINOZA OT May 26, 2017 16:33
[2017-05-26] MEDS: KCL 8 MEQ (MICRO K) TABLET PO SCH (16:42)
[2017-05-26 19:00] VITALS: BP 118/77
[2017-05-26] MEDS: ENOXAPARIN 40 MG/0.4 ML (LOVENOX) SYR SC SCH (20:11)
[2017-05-26] MEDS: MELATONIN 3 MG TABLET PO SCH (20:12)
[2017-05-26] MEDS: LIDOCAINE PATCH REMOVAL TP SCH (20:14)
[2017-05-27] MEDS: LEVOTHYROXINE 112 MCG (LEVOTHROID) TAB PO SCH (06:02)
[2017-05-27] MEDS: oxyCODONE/APAP 5/325MG (PERCOCET 5) TABLET PO SCH (06:02)
[2017-05-27] MEDS: ASCORBIC ACID (VIT C) 500 MG TABLET PO SCH (06:02)
[2017-05-27] MEDS: MULTIVIT W/MINERALS TAB (THERAGRAN M) PO SCH (06:03)
[2017-05-27] MEDS: LACTOBACILLUS Acidoph/Bulgar (LACTINEX/FLORANEX) TAB PO SCH ×3 (06:03→16:53)
[2017-05-27 06:35] VITALS: BP 116/69
[2017-05-27] MEDS: metroNIDAZOLE 500 MG (FLAGYL) TAB PO SCH ×3 (08:20→20:50)
[2017-05-27] MEDS: SENNA W/DOCUSATE (SENOKOT S) TABLET PO SCH ×2 (08:20→20:50)
[2017-05-27] MEDS: LIDOCAINE (LIDODERM) 5% PATCH TOP SCH (08:20)
[2017-05-27] MEDS: ceTIRizine 10 MG (ZyrTEC) TAB NON-FORMULARY PO SCH (08:20)
[2017-05-27] MEDS: POLYETHYLENE GLYCOL 17 GM (MIRALAX) PACK PO SCH ×2 (08:20→20:50)
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
--- NOTE | 2017-05-27 10:55 | Physical Therapy Daily Note ---
PT Daily Note-Current Subjective Pt reports she has been up the commode twice today, once at 3 am and once at 830 am. Reports she feels tired today. Transfers Functional [place] Measure 0=Not Assessed/NA 4=Minimal Assistance 1=Total Assistance 5=Supervision or Setup 2=Maximal Assistance 6=Modified [place] 3=Moderate Assistance 7=Complete IndependenceIRFPAI Quality Coding Scale 6 Independent with activity with or without an assistive device 5 Patient requires set up or clean up by helper. Patient completes activity by themselves 4 Supervision or touching assist (CGA). [place] provide cues , steadying assist 3 The helper provides less than half the effort to complete the activity 2 The helper provides more than half the effort to complete the activity 1 Dependent. The helper does all the effort to complete an activity 7 Patient refused to complete or attempt activity 9 The patient did not perform the activity before the current illness or injury 88 Not attempted due to Medical conditions or safety concerns Weight Bearing Right Lower Extremity: Right Non Weight Bearing Left Lower Extremity: Left Non Weight Bearing Treatments Worked on functional bed mobility such as scooting and rolling all SBA, slide board transfer to the wheelchair with SBA. Wheelchair mobility x 50 ft with SBA. This was an individual treatment. Then initiated a co treat with OT, working on core seated dynamic functional balance at edge of mat while OT addressed bending and reaching to improve self care tasks; 2 slide board transfers performed during this time as well with SB- CGA to complete. Pt also performed hygiene at the sink which OT addressed and PT addressed WC mobility to and from and about the bathroom with skilled cues on performing mobility in the bathroom and the room. Also performed wc mobility to the gym x 125 ft with SBA. Assessment Current Status: Good Progress Very tired this date but participatory and cooperative. Strength and transfers continue to improve. Wheelchair mobility improved as well; pt released from isolation precaution, so able to propel wheelchair in the halls. PT Short Term Goals Short Term Goals Time Frame: Jun 01, 2017 Transfers (B,C,W/C) (FIM): 4 (met) Wheelchair (FIM): 5 (met) Wheelchair distance (FIM): 3=150 ft Wheelchair Distance: 40 feet PT Supervisor [place] Goals Senior Living Goals PT Senior Living Goals Time Frame: Jun 15, 2017 Transfers (B,C,W/C) (FIM): 6 Sit to Lying (QC): 6 Lying-Sitting on Side/Bed(QC): 6 Sit to Stand (QC): 88 Rollin Roll Left to Right (QC): 6 Chair/Tdy-cu-Hveay Xfer(QC): 6 (slide board tfr) Car Transfer (QC): 4 Does the Patient Walk: No and Walking Goal NOT indicated Wheelchair (FIM): 6 Wheelchair distance (FIM): 3=150 ft Wheelchair Level of Assist: 6 Wheel 50 feet with 2 turns (QC: 6 Stairs (FIM): 1 1 Step (curb) (QC): 88 4 Steps (QC): 88 12 Steps (QC): 88 Picking up an Object (QC): 88 PT Plan Problem List Problem List: Activity Tolerance, Functional Strength, Safety Treatment/Plan Treatment Plan: Continue Plan of Care Treatment Plan: Bed Mobility, Education, Functional Activity Buster, Functional Strength, Group Therapy, Safety, Therapeutic Exercise, Transfers, Other (wc mob) Treatment Duration: Jun 15, 2017 Frequency: At least 5 of 7 days/Wk (IRF) Estimated Hrs Per Day: 1.5 hours per day Patient and/or Family Agrees t: Yes Safety Risks/Education Patient Education: Safety Issues Teaching Recipient: Patient Teaching Methods: Discussion Response to Teaching: Verbalize Understanding Time/GCodes Time In: 930 Time Out: 1030 (Individual 930-1000; co treat with OT [id number]) Total Billed Treatment Time: 60 Total Billed Treatment visit FA 15 WC 30 Neuro 15 FANNY CALHOUN PT May 27, 2017 10:55
--- NOTE | 2017-05-27 11:51 | Occupational Ther Daily Note ---
OT Current Status-Daily Note Subjective Pt seen in room, up in w/c, agreeable to OT. She did not want to take a shower or bath but did want to clean her teeth. No pain mentioned but pt looked fatigued. Appearance Alert, cooperative, fatigued Mental Status/Objective Functional [place] Measure 0=Not Assessed/NA 4=Minimal Assistance 1=Total Assistance 5=Supervision or Setup 2=Maximal Assistance 6=Modified [place] 3=Moderate Assistance 7=Complete [place] ADL-Treatment Co-tx with PT after individual PT treatment, with pt working on transfers and w/ c mobility and OT working on ADLs, UE functional and activity tolerance. Pt propelled w/c into the bathroom, requiring multiple steps to maneuver to the sink. She was able to independently brush teeth and hair and get w/c out of the bathroom. Functional [place] Measure 0=Not Assessed/NA 4=Minimal Assistance 1=Total Assistance 5=Supervision or Setup 2=Maximal Assistance 6=Modified [place] 3=Moderate Assistance 7=Complete IndependenceIRFPAI Quality Coding Scale 6 Independent with activity with or without an assistive device 5 Patient requires set up or clean up by helper. Patient completes activity by themselves 4 Supervision or touching assist (CGA). [place] provide cues , steadying assist 3 The helper provides less than half the effort to complete the activity 2 The helper provides more than half the effort to complete the activity 1 Dependent. The helper does all the effort to complete an activity 7 Patient refused to complete or attempt activity 9 The patient did not perform the activity before the current illness or injury 88 Not attempted due to Medical conditions or safety concerns Grooming (FIM): 6 Other Treatment She propelled w/c to gym and transferred to tx table (see PT notes). She worked on reaching for items to help with such ADLs as putting on pants and socks. No LOB observed. After transferring back to w/, did individual tx. She did 10 minutes bilat UE strengthening with arm bike set at 15W resistance, taking a couple recovery breaks due to fatigue.This is to strengthen arms to increase independence in sliding board transfers. She propelled herself back to room and transferred to bed with CGA and help to stabilize transfer board. She needed mod assist to get both legs into bed, due to fatigue, and was left up in bed, 4 rails up, all needs met, present. Education OT Patient Education: Exercise program, Progress toward Goal/Update tx plan, Purpose of tx/functional activities, Safety issues, Transfer techniques Teaching Recipient: Patient Teaching Methods: Demonstration, Discussion Response to Teaching: Verbalize Understanding, Return Demonstration OT Short Term Goals Short Term Goals Time Frame: Jun 01, 2017 Eating(FIM): 6 Grooming(FIM): 5 Transfers (B,C,W/C) (FIM): 4 (met) Additional Short Term Goals: 1-Demonstrate ADL Tasks, 2-Verbalize Understanding , 3-ImproveStrength/Buster 1=Demonstrate adherence to instructed precautions during ADL tasks. 2=Patient will verbalize/demonstrate understanding of assistive devices/ modifications for ADL. 3=Patient will improve strength/tolerance for activity to enable patient to perform ADL's. OT Residential Goals Postal Delivery Officer Goals Time Frame: Jun 15, 2017 Eating (FIM): 6 Eating (QC): 6 Groomin Oral Hygiene (QC): 6 Bathing(FIM): 5 Shower/Bathe Self (QC): 5 Upper Body Dressing(FIM): 6 Upper Body Dressing (QC): 6 Lower Body Dressing(FIM): 6 Lower Body Dressing (QC): 6 On/Off Footwear (QC): 6 Toileting(FIM): 6 Toileting Hygiene (QC): 6 Toilet/Commode Transfer(FIM): 6 Toilet/Commode Transfer (QC): 6 Shower Transfer(FIM): 5 Additional Goals: 1-Demonstrate ADL Tasks, 2-Verbalize Understanding, 3- ImproveStrength/Buster 1=Demonstrate adherence to instructed precautions during ADL tasks. 2=Patient will verbalize/demonstrate understanding of assistive devices/ modifications for ADL. 3=Patient will improve strength/tolerance for activity to enable patient to perform ADL's. OT Education/Plan Problem List/Assessment Pt would benefit from skilled OT to increase her independence in basic self care to allow her to safely return to her home and to decrease caregiver burden Discharge Recommendations Plan/Recommendations: Continue POC Treatment Plan/Plan of Care Patient would benefit from OT for education, treatment and training to promote independence in ADL's, mobility, safety and/or upper extremity function for ADL' s. Plan of Care: ADL Retraining, Functional Mobility, Group Exercise/Act as Ind ( education, exercise, act tolerance, socialization, transfers, funct activities) , UE Funct Exercise/Act, UE Neuromus Re-Ed/Coord Treatment Duration: Jun 15, 2017 Frequency: At least 5 of 7 days/Wk (IRF) Estimated Hrs Per Day: 1.5 hours per day Agreement: Yes Rehab Potential: Good Time/GCodes Start Time: 10:00 Stop Time: 11:00 Total Time Billed (hr/min): 60 Billed Treatment Time visit, 15 minutes ADL, 15 minutes funct activity, 30 minutes exercise 1000 to 1030 co-tx with PT, 1030 to 1100 individual OT tx MICHELE ESPINOZA OT May 27, 2017 11:51
[2017-05-27] MEDS: oxyCODONE/APAP 5/325MG (PERCOCET 5) TABLET PO PRN ×3 (14:21→23:54)
--- NOTE | 2017-05-27 14:40 | Therapy Group Daily Note ---
Therapy Daily Group Note Exercises Fine Motor, UE Exercise Other/Notes Pt maneuvered w/c to [facility] for OT/PT group. Group consisted of introductions (name, place born, best prank played), socialization, seated UE exercises, dynamic sitting balance, problem solving, peer interaction and fine motor skills. Pt was able to introduce self appropriately and stated that she did not remember of any prank played on other or her. Pt contributed to group conversations and demonstrated active listening skills to peers. Pt was able to complete dynamic sitting and UE exercises during activities without difficulty. Pt demonstrated good problem solving skills for strategic planning throughout activity. Good fine motor skills. After group, pt transported via w /c back to room then was assisted with transfer board to BSC, x2. Call light within reach. Nrsg notified that pt was on BSC. All needs met in room. Start Time: 13:00 Stop Time: 14:10 Total Billed Treatment Time: 70 Total Billed Treatment 1-GRP FANNY HASSAN May 27, 2017 14:40
[2017-05-27] MEDS: KCL 8 MEQ (MICRO K) TABLET PO SCH (16:53)
[2017-05-27 18:20] VITALS: BP 115/73
[2017-05-27] MEDS: MELATONIN 3 MG TABLET PO SCH (20:50)
[2017-05-27] MEDS: ENOXAPARIN 40 MG/0.4 ML (LOVENOX) SYR SC SCH (20:50)
[2017-05-27] MEDS: LIDOCAINE PATCH REMOVAL TP SCH (20:50)
[2017-05-28] MEDS: LACTOBACILLUS Acidoph/Bulgar (LACTINEX/FLORANEX) TAB PO SCH ×3 (05:38→15:27)
[2017-05-28] MEDS: MULTIVIT W/MINERALS TAB (THERAGRAN M) PO SCH (05:38)
[2017-05-28] MEDS: oxyCODONE/APAP 5/325MG (PERCOCET 5) TABLET PO SCH ×2 (05:39→15:27)
[2017-05-28] MEDS: ASCORBIC ACID (VIT C) 500 MG TABLET PO SCH (05:39)
[2017-05-28] MEDS: LEVOTHYROXINE 112 MCG (LEVOTHROID) TAB PO SCH (05:39)
[2017-05-28 06:00] VITALS: BP 107/69
[2017-05-28] MEDS: POLYETHYLENE GLYCOL 17 GM (MIRALAX) PACK PO SCH ×2 (09:00→20:04)
[2017-05-28] MEDS: SENNA W/DOCUSATE (SENOKOT S) TABLET PO SCH ×2 (09:00→20:04)
[2017-05-28] MEDS: metroNIDAZOLE 500 MG (FLAGYL) TAB PO SCH ×3 (09:15→20:03)
[2017-05-28] MEDS: ceTIRizine 10 MG (ZyrTEC) TAB NON-FORMULARY PO SCH (09:16)
[2017-05-28] MEDS: LIDOCAINE (LIDODERM) 5% PATCH TOP SCH (09:16)
--- NOTE | 2017-05-28 11:38 | Physical Therapy Daily Note ---
PT Daily Note-Current Subjective No complaints on arrival. Pt up in WC, ready to go. Mental Status Patient Orientation: Person, Place, Situation Attachments: Camara Catheter Transfers Functional [place] Measure 0=Not Assessed/NA 4=Minimal Assistance 1=Total Assistance 5=Supervision or Setup 2=Maximal Assistance 6=Modified [place] 3=Moderate Assistance 7=Complete IndependenceIRFPAI Quality Coding Scale 6 Independent with activity with or without an assistive device 5 Patient requires set up or clean up by helper. Patient completes activity by themselves 4 Supervision or touching assist (CGA). [place] provide cues , steadying assist 3 The helper provides less than half the effort to complete the activity 2 The helper provides more than half the effort to complete the activity 1 Dependent. The helper does all the effort to complete an activity 7 Patient refused to complete or attempt activity 9 The patient did not perform the activity before the current illness or injury 88 Not attempted due to Medical conditions or safety concerns Transfers (B, C, W/C) (FIM): 4 Scootin Rollin Supine to/from Sit: 4 Bed to/from Chair: 4 Slide board transfer from wc to bed with min assist. Weight Bearing Right Lower Extremity: Right Non Weight Bearing Left Lower Extremity: Left Non Weight Bearing Wheelchair Training Wheelchair (FIM): 5 Distance: 300ft Wheelchair Level of Assist: 5 Assessment Good performance with mobility navigating in the hallway and room. PT Short Term Goals Short Term Goals Time Frame: Jun 01, 2017 Transfers (B,C,W/C) (FIM): 4 (met) Wheelchair (FIM): 5 (met) Wheelchair distance (FIM): 3=150 ft Wheelchair Distance: 40 feet PT Orthodontic Technician Assistant Goals Orthodontic Technician Assistant Goals PT Halfway Goals Time Frame: Jun 15, 2017 Transfers (B,C,W/C) (FIM): 6 Wheelchair (FIM): 6 Wheelchair distance (FIM): 3=150 ft Wheelchair Level of Assist: 6 Stairs (FIM): 1 PT Plan Treatment/Plan Treatment Plan: Continue Plan of Care Treatment Plan: Bed Mobility, Education, Functional Activity Buster, Functional Strength, Group Therapy, Safety, Therapeutic Exercise, Transfers, Other (wc mob) Treatment Duration: Jun 15, 2017 Frequency: At least 5 of 7 days/Wk (IRF) Estimated Hrs Per Day: 1.5 hours per day Patient and/or Family Agrees t: Yes Time/GCodes Time In: 1050 Time Out: 1106 Total Billed Treatment Time: 16 Total Billed Treatment 1, fa 16 ROBBY DEGROOT PT May 28, 2017 11:38
--- NOTE | 2017-05-28 11:45 | Physical Therapy Daily Note ---
PT Daily Note-Current Subjective Pt agreeable to treatment. Pt in wc on arrival. Mental Status Patient Orientation: Person, Place, Situation Attachments: Camara Catheter Transfers Functional [place] Measure 0=Not Assessed/NA 4=Minimal Assistance 1=Total Assistance 5=Supervision or Setup 2=Maximal Assistance 6=Modified [place] 3=Moderate Assistance 7=Complete IndependenceIRFPAI Quality Coding Scale 6 Independent with activity with or without an assistive device 5 Patient requires set up or clean up by helper. Patient completes activity by themselves 4 Supervision or touching assist (CGA). [place] provide cues , steadying assist 3 The helper provides less than half the effort to complete the activity 2 The helper provides more than half the effort to complete the activity 1 Dependent. The helper does all the effort to complete an activity 7 Patient refused to complete or attempt activity 9 The patient did not perform the activity before the current illness or injury 88 Not attempted due to Medical conditions or safety concerns Transfers (B, C, W/C) (FIM): 4 Scootin Rollin Supine to/from Sit: 4 Pt performed slide board transfer from wc to bed with minimal assist. Weight Bearing Right Lower Extremity: Right Non Weight Bearing Left Lower Extremity: Left Non Weight Bearing Wheelchair Training Wheelchair (FIM): 5 Distance: 300ft Wheelchair Level of Assist: 5 Good navigation with WC in the halls and room. Assessment Safe wc use and safe slide board transfer. PT Short Term Goals Short Term Goals Time Frame: Jun 01, 2017 Transfers (B,C,W/C) (FIM): 4 (met) Wheelchair (FIM): 5 (met) Wheelchair distance (FIM): 3=150 ft Wheelchair Distance: 300ft PT Refinery Operator Coking Goals Residential Goals PT Refinery Operator Coking Goals Time Frame: Jun 15, 2017 Transfers (B,C,W/C) (FIM): 6 Wheelchair (FIM): 6 Wheelchair distance (FIM): 3=150 ft Wheelchair Level of Assist: 6 Stairs (FIM): 1 PT Plan Treatment/Plan Treatment Plan: Continue Plan of Care Treatment Plan: Bed Mobility, Education, Functional Activity Buster, Functional Strength, Group Therapy, Safety, Therapeutic Exercise, Transfers, Other (wc mob) Treatment Duration: Jun 15, 2017 Frequency: At least 5 of 7 days/Wk (IRF) Estimated Hrs Per Day: 1.5 hours per day Patient and/or Family Agrees t: Yes Time/GCodes Time In: 1050 Time Out: 1106 Total Billed Treatment Time: 16 Total Billed Treatment 1, fa 16 ROBBY DEGROOT PT May 28, 2017 11:45
[2017-05-28] MEDS: KCL 8 MEQ (MICRO K) TABLET PO SCH (17:06)
[2017-05-28 20:01] VITALS: BP 101/65
[2017-05-28] MEDS: MELATONIN 3 MG TABLET PO SCH (20:03)
[2017-05-28] MEDS: ENOXAPARIN 40 MG/0.4 ML (LOVENOX) SYR SC SCH (20:03)
[2017-05-28] MEDS: oxyCODONE/APAP 5/325MG (PERCOCET 5) TABLET PO PRN (20:03)
[2017-05-28] MEDS: LIDOCAINE PATCH REMOVAL TP SCH (20:04)
[2017-05-29 06:00] VITALS: BP 110/71
[2017-05-29] MEDS: LACTOBACILLUS Acidoph/Bulgar (LACTINEX/FLORANEX) TAB PO SCH ×3 (06:07→16:05)
[2017-05-29] MEDS: LEVOTHYROXINE 112 MCG (LEVOTHROID) TAB PO SCH (06:08)
[2017-05-29] MEDS: ASCORBIC ACID (VIT C) 500 MG TABLET PO SCH (06:08)
[2017-05-29] MEDS: MULTIVIT W/MINERALS TAB (THERAGRAN M) PO SCH (06:08)
[2017-05-29] MEDS: oxyCODONE/APAP 5/325MG (PERCOCET 5) TABLET PO PRN ×2 (06:41→17:18)
[2017-05-29] MEDS: metroNIDAZOLE 500 MG (FLAGYL) TAB PO SCH ×3 (08:38→20:28)
[2017-05-29] MEDS: LIDOCAINE (LIDODERM) 5% PATCH TOP SCH (08:39)
[2017-05-29] MEDS: ceTIRizine 10 MG (ZyrTEC) TAB NON-FORMULARY PO SCH (08:40)
[2017-05-29] MEDS: POLYETHYLENE GLYCOL 17 GM (MIRALAX) PACK PO SCH ×2 (08:46→20:21)
[2017-05-29] MEDS: SENNA W/DOCUSATE (SENOKOT S) TABLET PO SCH ×2 (08:46→20:21)
[2017-05-29] MEDS: KCL 8 MEQ (MICRO K) TABLET PO SCH (16:05)
[2017-05-29 17:41] VITALS: BP 116/75
[2017-05-29] MEDS ORDERED: AMOXICILLIN 500 MG (POLYMOX) CAP PO ONE (17:50)
[2017-05-29] MEDS: AMOXICILLIN 500 MG (POLYMOX) CAP PO SCH ×2 (18:06→20:28)
[2017-05-29] MEDS: MELATONIN 3 MG TABLET PO SCH (20:28)
[2017-05-29] MEDS: ENOXAPARIN 40 MG/0.4 ML (LOVENOX) SYR SC SCH (20:28)
[2017-05-29] MEDS: LIDOCAINE PATCH REMOVAL TP SCH (20:29)
[2017-05-30 05:26] VITALS: BP 114/75
[2017-05-30] MEDS: LACTOBACILLUS Acidoph/Bulgar (LACTINEX/FLORANEX) TAB PO SCH ×3 (05:47→16:57)
[2017-05-30] MEDS: LEVOTHYROXINE 112 MCG (LEVOTHROID) TAB PO SCH (05:47)
[2017-05-30] MEDS: MULTIVIT W/MINERALS TAB (THERAGRAN M) PO SCH (05:47)
[2017-05-30] MEDS: ASCORBIC ACID (VIT C) 500 MG TABLET PO SCH (05:47)
[2017-05-30] MEDS: oxyCODONE/APAP 5/325MG (PERCOCET 5) TABLET PO SCH (05:48)
[2017-05-30] MEDS: AMOXICILLIN 500 MG (POLYMOX) CAP PO SCH ×3 (08:25→20:15)
[2017-05-30] MEDS: metroNIDAZOLE 500 MG (FLAGYL) TAB PO SCH ×3 (08:25→20:15)
[2017-05-30] MEDS: LIDOCAINE (LIDODERM) 5% PATCH TOP SCH (08:33)
[2017-05-30] MEDS: SENNA W/DOCUSATE (SENOKOT S) TABLET PO SCH ×2 (08:36→20:15)
[2017-05-30] MEDS: POLYETHYLENE GLYCOL 17 GM (MIRALAX) PACK PO SCH ×2 (08:36→20:15)
[2017-05-30] MEDS: oxyCODONE/APAP 5/325MG (PERCOCET 5) TABLET PO PRN ×2 (10:04→15:09)
[2017-05-30] MEDS: ceTIRizine 10 MG (ZyrTEC) TAB NON-FORMULARY PO SCH (10:09)
--- NOTE | 2017-05-30 11:13 | Physical Therapy Daily Note ---
PT Daily Note-Current Subjective Pt wonders aloud if the Melatonin makes her sleepy in the morning. Mental Status Patient Orientation: Person, Place, Time, Situation Transfers Functional [place] Measure 0=Not Assessed/NA 4=Minimal Assistance 1=Total Assistance 5=Supervision or Setup 2=Maximal Assistance 6=Modified [place] 3=Moderate Assistance 7=Complete IndependenceIRFPAI Quality Coding Scale 6 Independent with activity with or without an assistive device 5 Patient requires set up or clean up by helper. Patient completes activity by themselves 4 Supervision or touching assist (CGA). [place] provide cues , steadying assist 3 The helper provides less than half the effort to complete the activity 2 The helper provides more than half the effort to complete the activity 1 Dependent. The helper does all the effort to complete an activity 7 Patient refused to complete or attempt activity 9 The patient did not perform the activity before the current illness or injury 88 Not attempted due to Medical conditions or safety concerns Weight Bearing Right Lower Extremity: Right Non Weight Bearing Left Lower Extremity: Left Non Weight Bearing Treatments Treatment focused on functional mobility and transfers. Pt able to transfer sup to EOB mod indep with HOB elevated and use of bed rail. Pt then performed slide board transfer x 4 reps this visit with SBA only necessary. Wheelchair mobility 150 ft x 2 mod indep. Seated B LE ther ex x 15 for AP, LAQ and hip flexion to promote LE strength and ROM for when she is able to WB and begin standing. Co treat with OT partial treatment to address transfers to set up for ADL's as well as wheelchair mobiltiy in/out of the bathroom for self care tasks. Worked on leaning side to side to perform pericare while OT addressed pericare. Pt with OT post PT treatment. Pt requires skill of 2 clinicians due to the nature of functional transfer training and need for training with ADL's at the same time. Assessment Current Status: Good Progress Transfers and functional mobilty are improving; however, she seems groggy in the mornings and tires easily. PT Short Term Goals Short Term Goals Time Frame: Jun 01, 2017 Transfers (B,C,W/C) (FIM): 4 (met) Wheelchair (FIM): 5 (met) Wheelchair distance (FIM): 3=150 ft Wheelchair Distance: 300ft PT Equalizer Operator Goals Equalizer Operator Goals PT Equalizer Operator Goals Time Frame: Jun 15, 2017 Transfers (B,C,W/C) (FIM): 6 Sit to Lying (QC): 6 Lying-Sitting on Side/Bed(QC): 6 Sit to Stand (QC): 88 Rollin Roll Left to Right (QC): 6 Chair/Ibt-ie-Mwhmd Xfer(QC): 6 (slide board tfr) Car Transfer (QC): 4 Does the Patient Walk: No and Walking Goal NOT indicated Wheelchair (FIM): 6 Wheelchair distance (FIM): 3=150 ft Wheelchair Level of Assist: 6 Wheel 50 feet with 2 turns (QC: 6 Stairs (FIM): 1 1 Step (curb) (QC): 88 4 Steps (QC): 88 12 Steps (QC): 88 Picking up an Object (QC): 88 PT Plan Problem List Problem List: Activity Tolerance, Functional Strength, Safety, Transfer Treatment/Plan Treatment Plan: Continue Plan of Care Treatment Plan: Bed Mobility, Education, Functional Activity Buster, Functional Strength, Group Therapy, Safety, Therapeutic Exercise, Transfers, Other (wc mob) Treatment Duration: Jun 15, 2017 Frequency: At least 5 of 7 days/Wk (IRF) Estimated Hrs Per Day: 1.5 hours per day Patient and/or Family Agrees t: Yes Safety Risks/Education Patient Education: Transfer Techniques, Safety Issues Teaching Recipient: Patient Teaching Methods: Demonstration, Discussion Response to Teaching: Return Demonstration Discharge Recommendations Therapy D/C Recommendations: [facility] ([facility]) Time/GCodes Time In: 1000 Time Out: 1100 (co treat with OT [id number]) Total Billed Treatment Time: 60 Total Billed Treatment visit FA 45 WC 15 FANNY CALHOUN PT May 30, 2017 11:13
--- NOTE | 2017-05-30 13:40 | Occupational Ther Daily Note ---
OT Current Status-Daily Note Subjective Pt seen in room, up in bed, agreeable to OT. No pain mentioned. Appearance Alert, cooperative Mental Status/Objective Functional [place] Measure 0=Not Assessed/NA 4=Minimal Assistance 1=Total Assistance 5=Supervision or Setup 2=Maximal Assistance 6=Modified [place] 3=Moderate Assistance 7=Complete [place] ADL-Treatment Functional [place] Measure 0=Not Assessed/NA 4=Minimal Assistance 1=Total Assistance 5=Supervision or Setup 2=Maximal Assistance 6=Modified [place] 3=Moderate Assistance 7=Complete IndependenceIRFPAI Quality Coding Scale 6 Independent with activity with or without an assistive device 5 Patient requires set up or clean up by helper. Patient completes activity by themselves 4 Supervision or touching assist (CGA). [place] provide cues , steadying assist 3 The helper provides less than half the effort to complete the activity 2 The helper provides more than half the effort to complete the activity 1 Dependent. The helper does all the effort to complete an activity 7 Patient refused to complete or attempt activity 9 The patient did not perform the activity before the current illness or injury 88 Not attempted due to Medical conditions or safety concerns Other Treatment Pt was able to move from supine to sit EOB without help but she did raise head of bed and use rails. She scooted to EOB and weight shifted for placement of sliding board. She transferred to w/c with SBA, using sliding board. pt propelled w/c part of the way to gym and did 6 minutes bilat UE exercise on arm bike set at 25W resistance (increased resistance to decreased time). At end of tx, pt transported to [facility] for group. Education OT Patient Education: Exercise program, Progress toward Goal/Update tx plan, Purpose of tx/functional activities Teaching Recipient: Patient Response to Teaching: Verbalize Understanding, Return Demonstration OT Short Term Goals Short Term Goals Time Frame: Jun 01, 2017 Eating(FIM): 6 Grooming(FIM): 5 Transfers (B,C,W/C) (FIM): 4 (met) Additional Short Term Goals: 1-Demonstrate ADL Tasks, 2-Verbalize Understanding , 3-ImproveStrength/Buster 1=Demonstrate adherence to instructed precautions during ADL tasks. 2=Patient will verbalize/demonstrate understanding of assistive devices/ modifications for ADL. 3=Patient will improve strength/tolerance for activity to enable patient to perform ADL's. OT [facility] Goals [facility] Goals Time Frame: Jun 15, 2017 Eating (FIM): 6 Eating (QC): 6 Groomin Oral Hygiene (QC): 6 Bathing(FIM): 5 Shower/Bathe Self (QC): 5 Upper Body Dressing(FIM): 6 Upper Body Dressing (QC): 6 Lower Body Dressing(FIM): 6 Lower Body Dressing (QC): 6 On/Off Footwear (QC): 6 Toileting(FIM): 6 Toileting Hygiene (QC): 6 Toilet/Commode Transfer(FIM): 6 Toilet/Commode Transfer (QC): 6 Shower Transfer(FIM): 5 Additional Goals: 1-Demonstrate ADL Tasks, 2-Verbalize Understanding, 3- ImproveStrength/Buster 1=Demonstrate adherence to instructed precautions during ADL tasks. 2=Patient will verbalize/demonstrate understanding of assistive devices/ modifications for ADL. 3=Patient will improve strength/tolerance for activity to enable patient to perform ADL's. OT Education/Plan Problem List/Assessment Pt would benefit from skilled OT to increase her independence in basic self care to allow her to safely return to her home and to decrease caregiver burden Discharge Recommendations Plan/Recommendations: Continue POC Treatment Plan/Plan of Care Patient would benefit from OT for education, treatment and training to promote independence in ADL's, mobility, safety and/or upper extremity function for ADL' s. Plan of Care: ADL Retraining, Functional Mobility, Group Exercise/Act as Ind ( education, exercise, act tolerance, socialization, transfers, funct activities) , UE Funct Exercise/Act, UE Neuromus Re-Ed/Coord Treatment Duration: Jun 15, 2017 Frequency: At least 5 of 7 days/Wk (IRF) Estimated Hrs Per Day: 1.5 hours per day Agreement: Yes Rehab Potential: Good Time/GCodes Start Time: 12:45 Stop Time: 13:00 Total Time Billed (hr/min): 15 Billed Treatment Time visit, 5 minutes functional activity, 10 minutes exercise MICHELE ESPINOZA OT May 30, 2017 13:40
--- NOTE | 2017-05-30 13:40 | Occupational Ther Daily Note ---
OT Current Status-Daily Note Subjective Pt seen in room, up in w/c, agreeable to OT. No pain mentioned. Appearance Alert, cooperative Mental Status/Objective Functional [place] Measure 0=Not Assessed/NA 4=Minimal Assistance 1=Total Assistance 5=Supervision or Setup 2=Maximal Assistance 6=Modified [place] 3=Moderate Assistance 7=Complete [place] ADL-Treatment Co-tx with PT for part of tx, due to need for two disciplines to work on ADLs and transfers. pt also worked on w/c mobility in the room and OT worked on movement and balance in bed, with bathing. Pt was able to manage grooming without assistance at the sink and recalled to lock brakes appropriately on w/ c. She completed sliding board transfer on and off [facility] with SBA and help placing board and was able to manage hygiene and did Camara care herself. She also transferred with sliding board from BSC to bed and sat EOB to complete bathing and dressing. She was able to get both legs into bed herself (with difficulty) and helped to pull herself up in bed. Functional [place] Measure 0=Not Assessed/NA 4=Minimal Assistance 1=Total Assistance 5=Supervision or Setup 2=Maximal Assistance 6=Modified [place] 3=Moderate Assistance 7=Complete IndependenceIRFPAI Quality Coding Scale 6 Independent with activity with or without an assistive device 5 Patient requires set up or clean up by helper. Patient completes activity by themselves 4 Supervision or touching assist (CGA). [place] provide cues , steadying assist 3 The helper provides less than half the effort to complete the activity 2 The helper provides more than half the effort to complete the activity 1 Dependent. The helper does all the effort to complete an activity 7 Patient refused to complete or attempt activity 9 The patient did not perform the activity before the current illness or injury 88 Not attempted due to Medical conditions or safety concerns Grooming (FIM): 6 Bathing (FIM): 5 (sponge bath) Upper Body (FIM): 5 (gown) Lower Body Dressing (FIM): 5 (slipper socks) Toileting (FIM): 5 Toilet/Commode Transfer (FIM): 5 Other Treatment Pt did 10 reps bilat UE exercise with exercise bar, working on shoulders and elbow extension, as needed to help with transfers and ADLs. She added a scapular protraction/retraction exercise with the bar and felt it was helpful. Pt was left up in bed, 4 rails up, all needs met. Education OT Patient Education: Modified ADL techniques, Progress toward Goal/Update tx plan, Purpose of tx/functional activities, Transfer techniques Teaching Recipient: Patient Teaching Methods: Discussion Response to Teaching: Verbalize Understanding, Return Demonstration OT Short Term Goals Short Term Goals Time Frame: Jun 01, 2017 Eating(FIM): 6 Grooming(FIM): 5 Transfers (B,C,W/C) (FIM): 4 (met) Additional Short Term Goals: 1-Demonstrate ADL Tasks, 2-Verbalize Understanding , 3-ImproveStrength/Buster 1=Demonstrate adherence to instructed precautions during ADL tasks. 2=Patient will verbalize/demonstrate understanding of assistive devices/ modifications for ADL. 3=Patient will improve strength/tolerance for activity to enable patient to perform ADL's. OT [facility] Goals [facility] Goals Time Frame: Jun 15, 2017 Eating (FIM): 6 Eating (QC): 6 Groomin Oral Hygiene (QC): 6 Bathing(FIM): 5 Shower/Bathe Self (QC): 5 Upper Body Dressing(FIM): 6 Upper Body Dressing (QC): 6 Lower Body Dressing(FIM): 6 Lower Body Dressing (QC): 6 On/Off Footwear (QC): 6 Toileting(FIM): 6 Toileting Hygiene (QC): 6 Toilet/Commode Transfer(FIM): 6 Toilet/Commode Transfer (QC): 6 Shower Transfer(FIM): 5 Additional Goals: 1-Demonstrate ADL Tasks, 2-Verbalize Understanding, 3- ImproveStrength/Buster 1=Demonstrate adherence to instructed precautions during ADL tasks. 2=Patient will verbalize/demonstrate understanding of assistive devices/ modifications for ADL. 3=Patient will improve strength/tolerance for activity to enable patient to perform ADL's. OT Education/Plan Problem List/Assessment Pt would benefit from skilled OT to increase her independence in basic self care to allow her to safely return to her home and to decrease caregiver burden Discharge Recommendations Plan/Recommendations: Continue POC Treatment Plan/Plan of Care Patient would benefit from OT for education, treatment and training to promote independence in ADL's, mobility, safety and/or upper extremity function for ADL' s. Plan of Care: ADL Retraining, Functional Mobility, Group Exercise/Act as Ind ( education, exercise, act tolerance, socialization, transfers, funct activities) , UE Funct Exercise/Act, UE Neuromus Re-Ed/Coord Treatment Duration: Jun 15, 2017 Frequency: At least 5 of 7 days/Wk (IRF) Estimated Hrs Per Day: 1.5 hours per day Agreement: Yes Rehab Potential: Good Time/GCodes Start Time: 10:30 Stop Time: 11:15 Total Time Billed (hr/min): 45 Billed Treatment Time visit, 35 minutes ADL, 10 minutes exercise Co-tx with PT from 10:30 to 11:00 and individual treatment from 11:00 to 11:15 MICHELE ESPINOZA OT May 30, 2017 13:40
--- NOTE | 2017-05-30 14:46 | Therapy Group Daily Note ---
Therapy Daily Group Note Patient Education Topic Other List Below (flu vaccine, disease pervention, proper hand washing) Exercises LE Seated Exercise, UE Exercise (breathing and eye exercises) Other/Notes Pt. participated in group PT OT session this date. Pt. came to and from via w/ c. Pt. very much enjoyed socializing and sharing her name, home town and favorite winter activity; [place]. Proper Handwashing was demonstrated to all patients and they were given opportunity to either stand if they were possible or use juice bar team member . This Pt. used hand juice bar team member with assistance. Education regarding flu vaccine and disease prevention was discussed. Pts participated in seated U&L extremity ther ex as well as eye and breathing exercises. Pt. to room with assist to get in bed. [place] at hand, needs met. Start Time: 13:00 Stop Time: 14:10 Total Billed Treatment Time: 70 Total Billed Treatment 1,GRP STEPHANIE SIMMS TURBINE MECHANIC May 30, 2017 14:46
[2017-05-30] MEDS: KCL 8 MEQ (MICRO K) TABLET PO SCH (16:57)
[2017-05-30 18:39] VITALS: BP 111/67
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
[2017-05-30] MEDS: LIDOCAINE PATCH REMOVAL TP SCH (20:15)
[2017-05-30] MEDS: MELATONIN 3 MG TABLET PO SCH (20:15)
[2017-05-30] MEDS: ENOXAPARIN 40 MG/0.4 ML (LOVENOX) SYR SC SCH (20:15)
[2017-05-31 05:13] VITALS: BP 111/72
[2017-05-31] MEDS: MULTIVIT W/MINERALS TAB (THERAGRAN M) PO SCH (06:12)
[2017-05-31] MEDS: LACTOBACILLUS Acidoph/Bulgar (LACTINEX/FLORANEX) TAB PO SCH ×3 (06:12→16:18)
[2017-05-31] MEDS: LEVOTHYROXINE 112 MCG (LEVOTHROID) TAB PO SCH (06:12)
[2017-05-31] MEDS: oxyCODONE/APAP 5/325MG (PERCOCET 5) TABLET PO SCH (06:12)
[2017-05-31] MEDS: ASCORBIC ACID (VIT C) 500 MG TABLET PO SCH (06:13)
[2017-05-31] MEDS: POLYETHYLENE GLYCOL 17 GM (MIRALAX) PACK PO SCH ×2 (08:33→19:28)
[2017-05-31] MEDS: AMOXICILLIN 500 MG (POLYMOX) CAP PO SCH ×3 (08:33→20:54)
[2017-05-31] MEDS: metroNIDAZOLE 500 MG (FLAGYL) TAB PO SCH ×3 (08:33→20:54)
[2017-05-31] MEDS: LIDOCAINE (LIDODERM) 5% PATCH TOP SCH (08:34)
[2017-05-31] MEDS: ceTIRizine 10 MG (ZyrTEC) TAB NON-FORMULARY PO SCH (08:34)
[2017-05-31] MEDS: SENNA W/DOCUSATE (SENOKOT S) TABLET PO SCH ×2 (08:34→19:29)
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
[2017-05-31] MEDS ORDERED: POLY17PO23 PO (09:25)
[2017-05-31] MEDS ORDERED: SENN-20 PO (09:25)
[2017-05-31] MEDS ORDERED: OXYC-471 PO ×2 (09:32)
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
--- NOTE | 2017-05-31 10:56 | Physical Therapy Daily Note ---
PT Daily Note-Current Subjective Pt laying Supine in bed upon arrival. Pt agrees to PT. Pt reports not taking her Melatonin last night since it made her "feel foggy". Pain Numeric Pain Scale: 5-Moderate Pain Location Body Site: Pelvic Pain Description: Ache Mental Status Patient Orientation: Person, Place, Time, Situation Attachments: Other-See Comments (Cervical Collar) Transfers Functional [place] Measure 0=Not Assessed/NA 4=Minimal Assistance 1=Total Assistance 5=Supervision or Setup 2=Maximal Assistance 6=Modified [place] 3=Moderate Assistance 7=Complete IndependenceIRFPAI Quality Coding Scale 6 Independent with activity with or without an assistive device 5 Patient requires set up or clean up by helper. Patient completes activity by themselves 4 Supervision or touching assist (CGA). [place] provide cues , steadying assist 3 The helper provides less than half the effort to complete the activity 2 The helper provides more than half the effort to complete the activity 1 Dependent. The helper does all the effort to complete an activity 7 Patient refused to complete or attempt activity 9 The patient did not perform the activity before the current illness or injury 88 Not attempted due to Medical conditions or safety concerns Scootin Rollin Roll Left to Right (QC): 6 Supine to/from Sit: 6 Sit to/from Stand: 88 Sit to Lying (QC): 6 Sit to Stand (QC): 88 Chair/Ezl-tg-Dftlw Xfer(QC): 6 Bed to/from Chair: 6 Car Transfer (QC): 6 Pt cannot WB so cannot stand at this point. Weight Bearing Right Lower Extremity: Right Non Weight Bearing Left Lower Extremity: Left Non Weight Bearing Gait Training Gait (FIM): 88 Pt cannot WB at this time. Wheelchair Training Does the Pt Use a Wheelchair?: Yes Exercises Supine Ex: Ankle pumps, Quad Set, Heel Slides, Straight leg raise, Hip abd/add Supine Reps: 15 Treatments Pt practiced bed mobility, Supine to EOB to slide board transfer to [facility]. Pt propelled [facility] in hallway to Therapy Gym. Pt transferred to Therapy mat to complete Supine Ex before transferring back to [facility]. Dr Torres [id number] to visit pt before discharge tomorrow. OT arrives for tx. Pt left with OT and with all needs met. Assessment Current Status: Good Progress Pt reports looking forward to being able to WB but knows that will be going to SNF tomorrow. PT Short Term Goals Short Term Goals Time Frame: Jun 01, 2017 Transfers (B,C,W/C) (FIM): 4 (met) Wheelchair (FIM): 5 (met) Wheelchair distance (FIM): 3=150 ft Wheelchair Distance: 300ft PT Chcf Goals Chcf Goals PT Log Cutter Goals Time Frame: Jun 15, 2017 Transfers (B,C,W/C) (FIM): 6 Sit to Lying (QC): 6 Lying-Sitting on Side/Bed(QC): 6 Sit to Stand (QC): 88 Rollin Roll Left to Right (QC): 6 Chair/Osl-na-Lieal Xfer(QC): 6 (slide board tfr) Car Transfer (QC): 4 Does the Patient Walk: No and Walking Goal NOT indicated Wheelchair (FIM): 6 Wheelchair distance (FIM): 3=150 ft Wheelchair Level of Assist: 6 Wheel 50 feet with 2 turns (QC: 6 Stairs (FIM): 1 1 Step (curb) (QC): 88 4 Steps (QC): 88 12 Steps (QC): 88 Picking up an Object (QC): 88 PT Plan Problem List Problem List: Activity Tolerance, Functional Strength, Balance, Gait Treatment/Plan Treatment Plan: Continue Plan of Care Treatment Plan: Bed Mobility, Education, Functional Activity Buster, Functional Strength, Group Therapy, Safety, Therapeutic Exercise, Transfers, Other (wc mob) Treatment Duration: Jun 15, 2017 Frequency: At least 5 of 7 days/Wk (IRF) Estimated Hrs Per Day: 1.5 hours per day Patient and/or Family Agrees t: Yes Safety Risks/Education Patient Education: Gait Training, Transfer Techniques, Correct Positioning, Safety Issues Teaching Recipient: Patient Teaching Methods: Discussion Response to Teaching: Verbalize Understanding Time/GCodes Time In: 800 Time Out: 900 Total Billed Treatment Time: 60 Total Billed Treatment 1, FA x2 (30m), WCH (15m) & EX (15m) CARLEY MTZ PTA May 31, 2017 10:56
[2017-05-31] MEDS: oxyCODONE/APAP 5/325MG (PERCOCET 5) TABLET PO PRN (11:36)
--- NOTE | 2017-05-31 11:38 | Occupational Ther Daily Note ---
OT Current Status-Daily Note Subjective Pt seen in gym after PT, agreeable to OT. Face shows discomfort in back/hips and nursing notified. Appearance Alert, cooperative. Not groggy Mental Status/Objective Functional [place] Measure 0=Not Assessed/NA 4=Minimal Assistance 1=Total Assistance 5=Supervision or Setup 2=Maximal Assistance 6=Modified [place] 3=Moderate Assistance 7=Complete [place] Attachments: Hernandez Catheter ADL-Treatment After shower, pt completed grooming and transferred with SBA (a little help to place board) to bed. She was able to scoot sideways toward the head of the bed and was also able to get both legs into bed, although with effort. Dry cervical collar pads were placed but otherwise cervical collar on throughout tx. Pt left up in bed, 4 rails up, all needs met. Functional [place] Measure 0=Not Assessed/NA 4=Minimal Assistance 1=Total Assistance 5=Supervision or Setup 2=Maximal Assistance 6=Modified [place] 3=Moderate Assistance 7=Complete IndependenceIRFPAI Quality Coding Scale 6 Independent with activity with or without an assistive device 5 Patient requires set up or clean up by helper. Patient completes activity by themselves 4 Supervision or touching assist (CGA). [place] provide cues , steadying assist 3 The helper provides less than half the effort to complete the activity 2 The helper provides more than half the effort to complete the activity 1 Dependent. The helper does all the effort to complete an activity 7 Patient refused to complete or attempt activity 9 The patient did not perform the activity before the current illness or injury 88 Not attempted due to Medical conditions or safety concerns Eating (FIM): 6 (Pt is able to open packages, cut food, get it to her mouth without assistance but does use a Andres cup because it is endocrinology teacher weight, has a straw and does not need to be tipped up to use. ) Eating (QC): 6 Grooming (FIM): 6 (Pt is able to wash face and hands, comb hair, brush teeth and apply lotion without help, at w/c level.) Oral Hygiene (QC): 6 Bathing (FIM): 5 (Pt was able to wash and dry all parts with setup. Turned water on and off and retrieved towels form bar. Able to wash hair. Setup to put towel under her bottom to dry it off prior to sliding board transfer out of shower. SHower bench, grab bars, hand held shower) Shower/Bathe Self (QC): 5 Toileting (FIM): 5 (Pt is able to manage clothing if she is in bed before toileting (sometimes she can weight shift to get pants up and down) and is able to manage hygiene with setup. She does have a hernandez catheter that staff need to empty.) Toileting Hygiene (QC): 5 (setup) Toilet/Commode Transfer (FIM): 5 (Pt transfers on and all BSC using sliding board that she needs a little help to place. Supervision/SBA) Toilet Transfer (QC): 4 Shower Transfer(FIM): 5 (SBA getting on/off shower bench using sliding board, grab bars. Pt needs a little help placing sliding board and supervision) Education OT Patient Education: Modified ADL techniques, Progress toward Goal/Update tx plan, Purpose of tx/functional activities, Safety issues, Transfer techniques Teaching Recipient: Patient Teaching Methods: Discussion Response to Teaching: Verbalize Understanding, Return Demonstration OT Short Term Goals Short Term Goals Time Frame: Jun 01, 2017 Eating(FIM): 6 Grooming(FIM): 5 Transfers (B,C,W/C) (FIM): 4 (met) Additional Short Term Goals: 1-Demonstrate ADL Tasks, 2-Verbalize Understanding , 3-ImproveStrength/Buster 1=Demonstrate adherence to instructed precautions during ADL tasks. 2=Patient will verbalize/demonstrate understanding of assistive devices/ modifications for ADL. 3=Patient will improve strength/tolerance for activity to enable patient to perform ADL's. OT Half-Way Goals Radiologic Technologist Goals Time Frame: Jun 15, 2017 Eating (FIM): 6 Eating (QC): 6 Groomin Oral Hygiene (QC): 6 Bathing(FIM): 5 Shower/Bathe Self (QC): 5 Upper Body Dressing(FIM): 6 Upper Body Dressing (QC): 6 Lower Body Dressing(FIM): 6 Lower Body Dressing (QC): 6 On/Off Footwear (QC): 6 Toileting(FIM): 6 Toileting Hygiene (QC): 6 Toilet/Commode Transfer(FIM): 6 Toilet/Commode Transfer (QC): 6 Shower Transfer(FIM): 5 Additional Goals: 1-Demonstrate ADL Tasks, 2-Verbalize Understanding, 3- ImproveStrength/Buster 1=Demonstrate adherence to instructed precautions during ADL tasks. 2=Patient will verbalize/demonstrate understanding of assistive devices/ modifications for ADL. 3=Patient will improve strength/tolerance for activity to enable patient to perform ADL's. OT Education/Plan Problem List/Assessment Pt would benefit from skilled OT to increase her independence in basic self care to allow her to safely return to her home and to decrease caregiver burden Discharge Recommendations Plan/Recommendations: Continue POC Treatment Plan/Plan of Care Patient would benefit from OT for education, treatment and training to promote independence in ADL's, mobility, safety and/or upper extremity function for ADL' s. Plan of Care: ADL Retraining, Functional Mobility, Group Exercise/Act as Ind ( education, exercise, act tolerance, socialization, transfers, funct activities) , UE Funct Exercise/Act, UE Neuromus Re-Ed/Coord Treatment Duration: Jun 15, 2017 Frequency: At least 5 of 7 days/Wk (IRF) Estimated Hrs Per Day: 1.5 hours per day Agreement: Yes Rehab Potential: Good Time/GCodes Start Time: 09:00 Stop Time: 10:00 Total Time Billed (hr/min): 60 Billed Treatment Time visit, 60 minutes ADL MICHELE ESPINOZA OT May 31, 2017 11:38
--- NOTE | 2017-05-31 13:28 | Physical Therapy Daily Note ---
PT Daily Note-Current Subjective PT sitting up in bed upon arrival. Pt agrees to PT. Pain Numeric Pain Scale: 4 Location: Right Location Body Site: Thigh Pain Description: Ache Comment: Pt reports R groin pain with some Ex. Mental Status Patient Orientation: Person, Place, Time, Situation Transfers Functional [place] Measure 0=Not Assessed/NA 4=Minimal Assistance 1=Total Assistance 5=Supervision or Setup 2=Maximal Assistance 6=Modified [place] 3=Moderate Assistance 7=Complete IndependenceIRFPAI Quality Coding Scale 6 Independent with activity with or without an assistive device 5 Patient requires set up or clean up by helper. Patient completes activity by themselves 4 Supervision or touching assist (CGA). [place] provide cues , steadying assist 3 The helper provides less than half the effort to complete the activity 2 The helper provides more than half the effort to complete the activity 1 Dependent. The helper does all the effort to complete an activity 7 Patient refused to complete or attempt activity 9 The patient did not perform the activity before the current illness or injury 88 Not attempted due to Medical conditions or safety concerns Weight Bearing Right Lower Extremity: Right Non Weight Bearing Left Lower Extremity: Left Non Weight Bearing Gait Training Pt is NWB BLE. Stair Training Pt is NWB BLE. Balance Picking up an Object (QC): 88 Special Test Comments Pt is NWB BLE. Exercises Supine Ex: Ankle pumps, Quad Set, Heel Slides, Straight leg raise, Hip abd/add Treatments Pt completes Supine Ex in bed. Pt completed FIM scoring in AM tx for items pt could complete. Not all tasks could be completed due to NWB status of BLE per Dr Torres at this time. Pt to discharge to SNF tomorrow until WB restrictions lightened. Pt is resting Supine in bed at end of tx with all needs met. OT to immediately follow PT tx. Assessment Current Status: Good Progress Pt know is has improved to Mod I with tasks she can complete due to WB restrictions at this time. Pt will improve more significantly when WB status improves in a few weeks. PT Short Term Goals Short Term Goals Time Frame: Jun 01, 2017 Transfers (B,C,W/C) (FIM): 4 (met) Wheelchair (FIM): 5 (met) Wheelchair distance (FIM): 3=150 ft Wheelchair Distance: 300ft PT Fluorescent Solution Mixer Goals Fluorescent Solution Mixer Goals PT Fluorescent Solution Mixer Goals Time Frame: Jun 15, 2017 Transfers (B,C,W/C) (FIM): 6 Sit to Lying (QC): 6 Lying-Sitting on Side/Bed(QC): 6 Sit to Stand (QC): 88 Rollin Roll Left to Right (QC): 6 Chair/Vuf-sl-Eaxto Xfer(QC): 6 (slide board tfr) Car Transfer (QC): 4 Does the Patient Walk: No and Walking Goal NOT indicated Wheelchair (FIM): 6 Wheelchair distance (FIM): 3=150 ft Wheelchair Level of Assist: 6 Wheel 50 feet with 2 turns (QC: 6 Stairs (FIM): 1 1 Step (curb) (QC): 88 4 Steps (QC): 88 12 Steps (QC): 88 Picking up an Object (QC): 88 PT Plan Problem List Problem List: Activity Tolerance, Functional Strength, Safety, Gait Treatment/Plan Treatment Plan: Continue Plan of Care Treatment Plan: Bed Mobility, Education, Functional Activity Buster, Functional Strength, Group Therapy, Safety, Therapeutic Exercise, Transfers, Other (wc mob) Treatment Duration: Jun 15, 2017 Frequency: At least 5 of 7 days/Wk (IRF) Estimated Hrs Per Day: 1.5 hours per day Patient and/or Family Agrees t: Yes Safety Risks/Education Patient Education: Correct Positioning, Safety Issues Teaching Recipient: Patient Teaching Methods: Discussion Response to Teaching: Verbalize Understanding Time/GCodes Time In: 1300 Time Out: 1330 Total Billed Treatment 1, EX x2 (30m) CARLEY MTZ DEICER ELEMENT WINDER MACHINE May 31, 2017 13:27
--- NOTE | 2017-05-31 14:23 | Occupational Ther Daily Note ---
OT Current Status-Daily Note Subjective Pt seen in room, up in bed, agreeable to OT. No pain mentioned. Appearance Alert, cooperative Mental Status/Objective Functional [place] Measure 0=Not Assessed/NA 4=Minimal Assistance 1=Total Assistance 5=Supervision or Setup 2=Maximal Assistance 6=Modified [place] 3=Moderate Assistance 7=Complete [place] ADL-Treatment Pt did dressing in bed. She is unable to stand due to no weight bearing status with bilat LEs. Pt was able to elevate and flatten head of bed to assist and also used bed side rails. Pt left up in bed, all needs met. Functional [place] Measure 0=Not Assessed/NA 4=Minimal Assistance 1=Total Assistance 5=Supervision or Setup 2=Maximal Assistance 6=Modified [place] 3=Moderate Assistance 7=Complete IndependenceIRFPAI Quality Coding Scale 6 Independent with activity with or without an assistive device 5 Patient requires set up or clean up by helper. Patient completes activity by themselves 4 Supervision or touching assist (CGA). [place] provide cues , steadying assist 3 The helper provides less than half the effort to complete the activity 2 The helper provides more than half the effort to complete the activity 1 Dependent. The helper does all the effort to complete an activity 7 Patient refused to complete or attempt activity 9 The patient did not perform the activity before the current illness or injury 88 Not attempted due to Medical conditions or safety concerns Upper Body (FIM): 5 (setup) Upper Body Dressing (QC): 5 (setup) Lower Body Dressing (FIM): 5 (setup, using sock aid to don R sock. TEDs applied with setup. Long sitting, using bed rail to help get up to sitting. Rolled side to side to pull pants up in back. ) Lower Body Dressing (QC): 5 (setup) Education OT Patient Education: Progress toward Goal/Update tx plan, Purpose of tx/ functional activities Teaching Recipient: Patient Teaching Methods: Discussion Response to Teaching: Return Demonstration OT Short Term Goals Short Term Goals Time Frame: Jun 01, 2017 Eating(FIM): 6 Grooming(FIM): 5 Transfers (B,C,W/C) (FIM): 4 (met) Additional Short Term Goals: 1-Demonstrate ADL Tasks, 2-Verbalize Understanding , 3-ImproveStrength/Buster 1=Demonstrate adherence to instructed precautions during ADL tasks. 2=Patient will verbalize/demonstrate understanding of assistive devices/ modifications for ADL. 3=Patient will improve strength/tolerance for activity to enable patient to perform ADL's. OT Residential Goals Residential Goals Time Frame: Jun 15, 2017 Eating (FIM): 6 Eating (QC): 6 Groomin Oral Hygiene (QC): 6 Bathing(FIM): 5 Shower/Bathe Self (QC): 5 Upper Body Dressing(FIM): 6 Upper Body Dressing (QC): 6 Lower Body Dressing(FIM): 6 Lower Body Dressing (QC): 6 On/Off Footwear (QC): 6 Toileting(FIM): 6 Toileting Hygiene (QC): 6 Toilet/Commode Transfer(FIM): 6 Toilet/Commode Transfer (QC): 6 Shower Transfer(FIM): 5 Additional Goals: 1-Demonstrate ADL Tasks, 2-Verbalize Understanding, 3- ImproveStrength/Buster 1=Demonstrate adherence to instructed precautions during ADL tasks. 2=Patient will verbalize/demonstrate understanding of assistive devices/ modifications for ADL. 3=Patient will improve strength/tolerance for activity to enable patient to perform ADL's. OT Education/Plan Problem List/Assessment Pt would benefit from skilled OT to increase her independence in basic self care to allow her to safely return to her home and to decrease caregiver burden Discharge Recommendations Plan/Recommendations: Continue POC (anticipate dc tomorrow am to [facility]) Treatment Plan/Plan of Care Patient would benefit from OT for education, treatment and training to promote independence in ADL's, mobility, safety and/or upper extremity function for ADL' s. Plan of Care: ADL Retraining, Functional Mobility, Group Exercise/Act as Ind ( education, exercise, act tolerance, socialization, transfers, funct activities) , UE Funct Exercise/Act, UE Neuromus Re-Ed/Coord Treatment Duration: Jun 15, 2017 Frequency: At least 5 of 7 days/Wk (IRF) Estimated Hrs Per Day: 1.5 hours per day Agreement: Yes Rehab Potential: Good Time/GCodes Start Time: 13:30 Stop Time: 14:00 Total Time Billed (hr/min): 30 Billed Treatment Time visit, 30 minutes ADL MICHELE ESPINOZA OT May 31, 2017 14:23
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
[2017-05-31 18:26] VITALS: BP 115/73
[2017-05-31] MEDS: MELATONIN 3 MG TABLET PO SCH (20:53)
[2017-05-31] MEDS: LIDOCAINE PATCH REMOVAL TP SCH (20:54)
[2017-05-31] MEDS: ENOXAPARIN 40 MG/0.4 ML (LOVENOX) SYR SC SCH (20:54)
[2017-06-01 05:03] VITALS: BP 123/75
[2017-06-01] MEDS: MULTIVIT W/MINERALS TAB (THERAGRAN M) PO SCH (06:01)
[2017-06-01] MEDS: LACTOBACILLUS Acidoph/Bulgar (LACTINEX/FLORANEX) TAB PO SCH (06:01)
[2017-06-01] MEDS: ASCORBIC ACID (VIT C) 500 MG TABLET PO SCH (06:01)
[2017-06-01] MEDS: LEVOTHYROXINE 112 MCG (LEVOTHROID) TAB PO SCH (06:01)
[2017-06-01] MEDS: oxyCODONE/APAP 5/325MG (PERCOCET 5) TABLET PO SCH (06:01)
[2017-06-01] MEDS: POLYETHYLENE GLYCOL 17 GM (MIRALAX) PACK PO SCH (07:39)
[2017-06-01] MEDS: SENNA W/DOCUSATE (SENOKOT S) TABLET PO SCH (07:40)
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
[2017-06-01] MEDS: AMOXICILLIN 500 MG (POLYMOX) CAP PO SCH (09:16)
[2017-06-01] MEDS: metroNIDAZOLE 500 MG (FLAGYL) TAB PO SCH (09:17)
[2017-06-01] MEDS: ceTIRizine 10 MG (ZyrTEC) TAB NON-FORMULARY PO SCH (09:18)
[2017-06-01] MEDS: oxyCODONE/APAP 5/325MG (PERCOCET 5) TABLET PO PRN (09:18)
[2017-06-01] MEDS: LIDOCAINE (LIDODERM) 5% PATCH TOP SCH (09:19)
--- NOTE | 2017-06-01 09:51 | Physical Therapy Daily Note ---
PT Daily Note-Current Subjective Reports she is going to [facility] at 1030 today. Reports she understands it is a timing issue and her bones need time to heal. Transfers Functional [place] Measure 0=Not Assessed/NA 4=Minimal Assistance 1=Total Assistance 5=Supervision or Setup 2=Maximal Assistance 6=Modified [place] 3=Moderate Assistance 7=Complete IndependenceIRFPAI Quality Coding Scale 6 Independent with activity with or without an assistive device 5 Patient requires set up or clean up by helper. Patient completes activity by themselves 4 Supervision or touching assist (CGA). [place] provide cues , steadying assist 3 The helper provides less than half the effort to complete the activity 2 The helper provides more than half the effort to complete the activity 1 Dependent. The helper does all the effort to complete an activity 7 Patient refused to complete or attempt activity 9 The patient did not perform the activity before the current illness or injury 88 Not attempted due to Medical conditions or safety concerns Weight Bearing Right Lower Extremity: Right Non Weight Bearing Left Lower Extremity: Left Non Weight Bearing Treatments Reviewed the treatment provided at this facility and reviewed precautions as well as the timing of heal time. Discussed safety as well. Pt verbalized understanding of all and is prepared for transfer to LTC at this time. Assessment This patient has made excellent progress throughout her stay, but due to the nature of being NWB B LE;s x 6 weeks, she does not feel she is safe or ready to go home. It was her choice to extend her care to a LTC facility due to NWB status. Her transfers have progressed well and she had made good gains towards established goals. PT Short Term Goals Short Term Goals Time Frame: Jun 01, 2017 Transfers (B,C,W/C) (FIM): 4 (met) Wheelchair (FIM): 5 (met) Wheelchair distance (FIM): 3=150 ft Wheelchair Distance: 300ft PT Penitentiary Goals Layer Out Goals PT Penitentiary Goals Time Frame: Jun 15, 2017 Transfers (B,C,W/C) (FIM): 6 Sit to Lying (QC): 6 Lying-Sitting on Side/Bed(QC): 6 Sit to Stand (QC): 88 Rollin Roll Left to Right (QC): 6 Chair/Sns-gn-Fmuck Xfer(QC): 6 (slide board tfr) Car Transfer (QC): 4 Does the Patient Walk: No and Walking Goal NOT indicated Wheelchair (FIM): 6 Wheelchair distance (FIM): 3=150 ft Wheelchair Level of Assist: 6 Wheel 50 feet with 2 turns (QC: 6 Stairs (FIM): 1 1 Step (curb) (QC): 88 4 Steps (QC): 88 12 Steps (QC): 88 Picking up an Object (QC): 88 PT Plan Treatment/Plan Treatment Plan: Discontinue PT Treatment Plan: Bed Mobility, Education, Functional Activity Buster, Functional Strength, Group Therapy, Safety, Therapeutic Exercise, Transfers, Other (wc mob) Treatment Duration: Jun 15, 2017 Frequency: At least 5 of 7 days/Wk (IRF) Estimated Hrs Per Day: 1.5 hours per day Patient and/or Family Agrees t: Yes Safety Risks/Education Patient Education: Transfer Techniques, Safety Issues Teaching Recipient: Patient Teaching Methods: Discussion Response to Teaching: Verbalize Understanding Discharge Recommendations Therapy D/C Recommendations: Residential (TCU/NH) (Skilled PT) Time/GCodes Time In: 940 Time Out: 951 Total Billed Treatment Time: 11 Total Billed Treatment visit FA 11 FANNY CALHOUN PT Jun 01, 2017 09:51
[2017-06-01 11:30] VITALS: BP 123/75
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
== END 2017-06-01 11:30 | DRG 560 ==
PROVIDERS: ADMIT Physical Medicine & Rehabilitation; ATTEND Physical Medicine & Rehabilitation
DX: S32.82XD Multiple fractures of pelvis without disruption of pelvic ring, subsequent encounter for fracture with routine healing (principal); S12.9XXD Fracture of neck, unspecified, subsequent encounter; S22.42XD Multiple fractures of ribs, left side, subsequent encounter for fracture with routine healing; S27.1XXD Traumatic hemothorax, subsequent encounter; S22.20XD Unspecified fracture of sternum, subsequent encounter for fracture with routine healing; S02.2XXD Fracture of nasal bones, subsequent encounter for fracture with routine healing; A04.72 Enterocolitis due to Clostridium difficile, not specified as recurrent; N39.0 Urinary tract infection, site not specified; D62 Acute posthemorrhagic anemia; I10 Essential (primary) hypertension; R33.9 Retention of urine, unspecified; R32 Unspecified urinary incontinence; G47.00 Insomnia, unspecified; E03.9 Hypothyroidism, unspecified; R06.89 Other abnormalities of breathing; E87.6 Hypokalemia; E83.51 Hypocalcemia; V48.5XXD Car driver injured in noncollision transport accident in traffic accident, subsequent encounter
CPT/HCPCS: 36415; 80048; 80053; 83735; 85025; 87324; 87449

== ENCOUNTER → 2017-06-09 | Outpatient (CLI) | payer OTHER, MEDICARE ==
[~2017-06-09] MED LIST: ASCO10006 PO; CETI10TA20 PO; IBUP-30 PO; LEVO112T55 PO; MELA3TAB PO; MULT-351 PO; OXYC-471 PO; POLY17PO23 PO; SENN-20 PO; VITA1TAB17 PO
--- NOTE | 2017-06-09 12:02 | Diagnostic Imaging Report ---
INDICATION: Cervical spine fusion, recheck. TIME OF EXAM: 11:50 AM COMPARISON: No prior studies are available for comparison. FINDINGS: Extensive cervical spine surgery is noted. There is an anterior plate and screws transfixing approximately the C6-T1 levels. There is also posterior spinal fixation rods and posterior element screws extending from approximately C4-T2. The visualized orthopedic hardware appears to be intact. No fracture or loosening is seen. There is mild anterolisthesis of C4 on C5. Minimal retrolisthesis of C2 on C3 is seen. IMPRESSION: Extensive postsurgical changes to the cervical spine, as described. No hardware fracture or loosening is seen. No definite complicating feature is identified. Dictated by: Dictated on workstation # [id number]
== END ==
LOC: RAD 11:22
PROVIDERS: ATTEND Internal Medicine
DX: Z09 Encounter for follow-up examination after completed treatment for conditions other than malignant neoplasm (principal); Z98.1 Arthrodesis status
CPT/HCPCS: 72040

== ENCOUNTER → 2017-06-30 | Outpatient (CLI) | payer OTHER, MEDICARE ==
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
== END ==
LOC: RAD 14:17
PROVIDERS: ATTEND Internal Medicine
DX: Z47.89 Encounter for other orthopedic aftercare (principal); Z98.1 Arthrodesis status
CPT/HCPCS: 72170

== ENCOUNTER → 2017-07-21 | Outpatient (CLI) | payer OTHER, MEDICARE ==
--- NOTE | 2017-07-21 17:51 | Diagnostic Imaging Report ---
INDICATION: Postop cervical spine fusion. EXAMINATION: AP, odontoid and lateral views of the cervical spine were obtained. COMPARISON: 06/09/2017. FINDINGS: Extensive postop changes are again noted with anterior plate and screws from C6-T1 with bone graft at C7. There are posterior screws in the facets from C4-T2. The hardware appears intact and unchanged in alignment compared to the prior study. There is no new bony abnormality. IMPRESSION: Stable postoperative changes in cervical spine with no change from 06/09/17. No new abnormality. Dictated by: Dictated on workstation # [id number]
== END ==
LOC: RAD 16:23
PROVIDERS: ATTEND Internal Medicine
DX: Z09 Encounter for follow-up examination after completed treatment for conditions other than malignant neoplasm (principal); Z98.1 Arthrodesis status
CPT/HCPCS: 72040

== ENCOUNTER → 2018-01-23 | Outpatient (CLI) | payer MEDICARE ==
--- NOTE | 2018-01-23 17:31 | Diagnostic Imaging Report ---
PROCEDURE: CT chest without contrast. TECHNIQUE: Multiple contiguous axial images were obtained through the chest without the use of intravenous contrast. INDICATION: Followup of thoracic aortic aneurysm. Chest and back pain for one month. History of sternal and rib fractures. COMPARISON: Comparison with 05/05/2017. FINDINGS: The previously reported rib fractures on the left have healed. There are no new fractures demonstrated. Good alignment of vertebral bodies. There is noted corpectomy with bone graft and fusion of the lower cervical spine. The lungs are well-aerated. There is persistent scarring along the lingula and right middle lobe which is unchanged. Persistent density left lung base medially likely representing some focal atelectasis. This is less prominent than on previous exam. Right lung base is clear. There is bronchiectasis with traction bronchiectasis noted in the right middle lobe. Mild traction bronchiectasis in the lingula. The aortic root is dilated. Maximal diameter is approximately 4.2 cm which appears unchanged since previous exam. The descending thoracic aorta is not dilated. Atherosclerotic changes noted of the descending thoracic aorta. There is no pleural effusion or pericardial effusion. IMPRESSION: 1. Stable appearing aortic aneurysm again measuring 4.2 cm in the aortic root. 2. Chronic lung changes with traction bronchiectasis most prominently in the right middle lobe and lingula. Some atelectasis noted medial basilar segment left lower lobe as well. 3. Healed left rib fractures. 4. Surgical changes noted lower cervical spine. No evidence of thoracic vertebral body fractures or malalignment. Dictated by: Dictated on workstation # [id number]
== END ==
LOC: RAD 14:29
PROVIDERS: ATTEND Internal Medicine
DX: I71.2 Thoracic aortic aneurysm, without rupture (principal); J47.9 Bronchiectasis, uncomplicated; J98.11 Atelectasis; Z87.81 Personal history of (healed) traumatic fracture; Z98.890 Other specified postprocedural states; Z98.1 Arthrodesis status
CPT/HCPCS: 71250